=== PATIENT | male | born 1955 | race Caucasian/White ===

== ENCOUNTER 2025-01-30 16:16 | Observation (INO) | payer MEDICARE, OTHER ==
--- NOTE | 2025-01-30 16:25 | ERPHSYRPT ---
- History of Present Illness Source: patient Exam Limitations: no limitations Timing/Duration: day(s) Severity: mild (To moderate) Associated Symptoms: diaphoresis, chills, fever, loss of appetite, malaise, weakness, other (Chills), No shortness of breath, No chest pain <JOHANNY JALLOH - Last Filed: 01/30/25 18:37> <NAFISA WAGNER - Last Filed: 01/30/25 22:49> - History of Present Illness Time Seen by Provider: 01/30/25 16:25 Physician History: This is a 69-year-old white male patient of Dr. Sheikh who presents to the emergency department by private vehicle accompanied by his spouse for the complaint of chills, fever and sweating. Symptoms began approximately 01/21/2025. Ever since that time he has not been feeling well. He arrives to the emergency department with hypotension, afebrile. He denies chest pain. He denies abdominal pain. He has no nausea vomiting or diarrhea. (JOHANNY JALLOH) Allergies/Adverse Reactions: No Known Drug Allergies Allergy (Verified 01/30/25 16:22) Home Medications: Carvedilol 3.125 mg [Coreg 3.125 MG] 3.125 mg PO BID 01/30/25 [History] Furosemide [Lasix] 20 mg PO DAILY 01/30/25 [History] lisinopriL [Zestril] 2.5 mg PO DAILY 01/30/25 [History] Travel Risk - International Travel Have you traveled outside of the country in past 3 weeks: No - Emerging Infectious Disease Are you exhibiting symptoms associated with any current EIDs: Yes Symptoms: Fever <JOHANNY JALLOH - Last Filed: 01/30/25 18:37> - Review of Systems Constitutional: Fever, Weakness Eyes: No Symptoms Ears, Nose, & Throat: No Symptoms Respiratory: No Symptoms Cardiac: No Symptoms Abdominal/Gastrointestinal: Appetite Changes Genitourinary Symptoms: No Symptoms Musculoskeletal: No Symptoms Skin: No Symptoms Neurological: No Symptoms Psychological: No Symptoms Endocrine: Excessive Sweating Hematologic/Lymphatic: No Symptoms Immunological/Allergic: No Symptoms All Other Systems: Reviewed and Negative <JOHANNY JALLOH - Last Filed: 01/30/25 18:37> - Past Medical History Pertinent Past Medical History: Yes <JOHANNY JALLOH YaSu - Last Filed: 01/30/25 18:37> - Physical Exam General Appearance: mild distress, alert, anxiety Eye Exam: PERRL/EOMI, eyes nml inspection Ears, Nose, Throat Exam: normal ENT inspection, moist mucous membranes Neck Exam: normal inspection, non-tender, supple, full range of motion Respiratory Exam: normal breath sounds, lungs clear, airway intact, No chest tenderness, No respiratory distress Cardiovascular Exam: regular rate/rhythm, normal heart sounds, normal peripheral pulses Gastrointestinal/Abdomen Exam: soft, normal bowel sounds, No tenderness Rectal Exam: not done Back Exam: normal inspection, normal range of motion, No CVA tenderness, No vertebral tenderness Extremity Exam: normal inspection, normal range of motion, pelvis stable Neurologic Exam: alert, oriented x 3, cooperative, 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, nml cerebellar function, nml station & gait Skin Exam: normal color, warm, dry Lymphatic Exam: No adenopathy SpO2 Interpretation: borderline oxygenation O2 Delivery: Room Air <JOHANNY JALLOH - Last Filed: 01/30/25 18:37> - Nursing Vital Signs Nursing Vital Signs: Initial Vital Signs Temperature 98.8 F 01/30/25 16:20 Respiratory Rate 22 01/30/25 16:20 O2 Sat by Pulse Oximetry 93 L 01/30/25 16:20 Pain Scale Pain Intensity 0 - Course Nursing assessment & vital signs reviewed: Yes <JOHANNY JALLOH - Last Filed: 01/30/25 18:37> - Course EKG Interpreted by Me: RATE (73), Sinus Rhythm, NORMAL AXIS, Q-wave, Non- specific ST Changes, Other (QTc prolonged) <NAFISA WAGNER - Last Filed: 01/30/25 22:49> Ordered Tests: Active Orders 24 hr Category Date Time Status Call Admit Doctor for Orders ON ADMISSION Care 01/30/25 22:06 Active Code Status Order ROUTINE Care 01/30/25 22:06 Active EKG-ER Only STAT Care 01/30/25 18:23 Completed IV Insertion STAT Care 01/30/25 17:[address] in Observation ROUTINE Care 01/30/25 22:06 Active Pulse Oximetry (ED) STAT Care 01/30/25 17:05 Completed Telemetry q6h Care 01/30/25 22:06 Active CHEST 1 VIEW (PORTABLE) Stat Exams 01/30/25 17:05 Taken BLOOD CULTURE Stat Lab 01/30/25 17:26 Received CBC W DIFF Stat Lab 01/30/25 17:00 Completed CMP Stat Lab 01/30/25 17:00 Completed CULTURE,URINE Stat Lab 01/30/25 20:34 Received Lactic Acid Stat Lab 01/30/25 17:09 Completed MAGNESIUM Stat Lab 01/30/25 18:35 Completed MONO SCREEN Stat Lab 01/30/25 17:00 Completed NT PRO BNPII Stat Lab 01/30/25 18:35 Completed TROPONIN Q4H Lab 01/30/25 18:30 Completed TROPONIN Q4H Lab 01/30/25 22:09 Received TROPONIN Q4H Lab 01/31/25 02:30 Ordered UA W/RFX UR CULTURE Stat Lab 01/30/25 20:34 Completed Pulse Oximetry CONTINUOUS RT 01/30/25 22:06 Active Respiratory Therapy Consult ONCE RT 01/30/25 22:06 Active Transfer Order Routine Transfer 01/30/25 Completed Medication Summary Generic Name Dose Route Start Last Admin Trade Name Freq PRN Reason Stop Dose Admin Acetaminophen 325 mg 01/30/25 22:45 Acetaminophen 325 Mg Tablet PO 03/01/25 22:44 Q4H PRN PRN PAIN, FEVER, HEADACHE Enoxaparin Sodium 40 mg 01/31/25 10:00 Enoxaparin Sodium 40 Mg/0.4 Ml Syringe SQ 03/02/25 09:59 DAILY NATE Ceftriaxone Sodium 1 gm in 100 mls @ 200 mls/hr 01/31/25 10:00 Rocephin 1 Gm / 100 Ml Nacl IV 03/02/25 09:59 Q24H10 NATE Ondansetron HCl 4 mg 01/30/25 22:45 Ondansetron Hcl 4 Mg/2 Ml Vial IV 03/01/25 22:44 Q6H PRN PRN NAUSEA/VOMITING Pantoprazole Sodium 40 mg 01/31/25 10:00 Protonix (Pantoprazole) 40 Mg Tablet PO 03/02/25 09:59 DAILY NATE Discontinued Medications Generic Name Dose Route Start Last Admin Trade Name Freq PRN Reason Stop Dose Admin Sodium Chloride 1,000 mls @ 999 mls/hr 01/30/25 17:05 01/30/25 18:35 Sodium Chloride 0.9% 1000 Ml IV 01/30/25 18:05 Infused .Q1H1M STA Infusion Sodium Chloride Confirm 01/30/25 17:32 Sodium Chloride 0.9% 1000 Ml Administered 01/30/25 17:33 Dose 1,000 mls @ ud .ROUTE .STK-MED ONE Sodium Chloride 1,000 mls @ 125 mls/hr 01/30/25 19:15 01/30/25 19:23 Sodium Chloride 0.9% 1000 Ml IV 03/01/25 19:14 125 mls/hr .Q8H NATE Administration Ceftriaxone Sodium 1 gm in 100 mls @ 200 mls/hr 01/30/25 21:08 01/30/25 21:58 Rocephin 1 Gm / 100 Ml Nacl IV 01/30/25 21:37 Infused STAT ONE Infusion Ceftriaxone Sodium Confirm 01/30/25 21:23 Rocephin 1 Gm / 100 Ml Nacl Administered 01/30/25 21:24 Dose 1 gm in 100 mls @ ud IV .STK-MED ONE Sodium Chloride Confirm 01/30/25 19:21 Sodium Chloride 0.9% 1000 Ml Administered 01/30/25 19:22 Dose 1,000 mls @ ud .ROUTE .STK-MED ONE Lab/Rad Data: Laboratory Result Diagrams 01/30/25 17:00 01/30/25 17:00 Laboratory Results 01/30/25 01/30/25 01/30/25 Range/Units 20:34 18:35 18:30 WBC (4.23-9.07) x10^3/uL RBC (4.63-6.08) x10^6/uL Hgb (13.7-17.5) g/dL Hct (40.1-51.0) % MCV (79.0-92.2) fL MCH (25.7-32.2) pg MCHC (32.3-36.5) g/dL RDW (11.6-14.4) % Plt Count (163-337) x10^3/uL MPV (9.4-12.4) fL Gran % (34.0-67.9) % Immature Gran % (Auto) (0.001-0.429) % Nucleat RBC Rel Count (0.00-0.2) % Eos # (Auto) (0.04-0.54) x10^3/uL Immature Gran # (Auto) (0.001-0.031) x10^3u/L Absolute Lymphs (auto) (1.32-3.57) x10^3/uL Absolute Monos (auto) (0.30-0.82) x10^3/uL Absolute Nucleated RBC (0.00-0.012) x10^3u/L Lymphocytes % (21.8-53.1) % Monocytes % (5.3-12.2) % Eosinophils % (0.8-7.0) % Basophils % (0.2-1.2) % Absolute Granulocytes (1.78-5.38) x10^3/uL Basophils # (0.01-0.08) x10^3/uL Sodium (135-145) mmol/L Potassium (3.5-5.1) mmol/L Chloride (98-107) mmol/L Carbon Dioxide (22-30) mmol/L Anion Gap (5-15) MEQ/L BUN (9-20) mg/dL Creatinine (0.66-1.25) mg/dL Estimated GFR ML/MIN Glucose (74-106) mg/dL Lactic Acid (0.4-2.0) Calcium (8.4-10.2) mg/dL Magnesium 3.1 H (1.6-2.3) mg/dL Total Bilirubin (0.2-1.3) mg/dL AST (17-59) U/L ALT (0-50) U/L Alkaline Phosphatase (38-126) U/L Troponin I 0.018 (0.000-0.033) ng/mL NT-Pro-B Natriuret Pep 2020 (<300) pg/mL Serum Total Protein (6.3-8.2) g/dL Albumin (3.5-5.0) g/dL Urine Color Dark Yellow (Yellow) Urine Appearance Cloudy A (Clear) Urine pH 5.0 (4.6-8.0) Ur Specific [place] 1.020 (1.005-1.030) Urine Protein 100 A (Negative) Urine Glucose (UA) Negative (Negative) mg/dL Urine Ketones Trace A (Negative) Urine Blood Trace (Negative) Urine Nitrite Negative (Negative) Urine Bilirubin Negative (Negative) Urine Urobilinogen 0.2 (0.2) mg/dL Ur Leukocyte Esterase Large A (Negative) U Hyaline Cast (Auto) 6-10 A (0-2) /LPF Urine Microscopic RBC 11-20 A (0-5) /HPF Urine Microscopic WBC >100 A (0-5) /HPF Ur Epithelial Cells Rare (None Seen) /HPF Urine Bacteria Many A (None Seen) /HPF Granular Casts 3-5 A (None Seen) /LPF Urine Culture Reflexed YES (NO) Monoscreen (NEGATIVE) Slides for Path Review 01/30/25 01/30/25 01/30/25 Range/Units 17:09 17:00 17:00 WBC (4.23-9.07) x10^3/uL RBC (4.63-6.08) x10^6/uL Hgb (13.7-17.5) g/dL Hct (40.1-51.0) % MCV (79.0-92.2) fL MCH (25.7-32.2) pg MCHC (32.3-36.5) g/dL RDW (11.6-14.4) % Plt Count (163-337) x10^3/uL MPV (9.4-12.4) fL Gran % (34.0-67.9) % Immature Gran % (Auto) (0.001-0.429) % Nucleat RBC Rel Count (0.00-0.2) % Eos # (Auto) (0.04-0.54) x10^3/uL Immature Gran # (Auto) (0.001-0.031) x10^3u/L Absolute Lymphs (auto) (1.32-3.57) x10^3/uL Absolute Monos (auto) (0.30-0.82) x10^3/uL Absolute Nucleated RBC (0.00-0.012) x10^3u/L Lymphocytes % (21.8-53.1) % Monocytes % (5.3-12.2) % Eosinophils % (0.8-7.0) % Basophils % (0.2-1.2) % Absolute Granulocytes (1.78-5.38) x10^3/uL Basophils # (0.01-0.08) x10^3/uL Sodium 140 (135-145) mmol/L Potassium 4.2 (3.5-5.1) mmol/L Chloride 106 (98-107) mmol/L Carbon Dioxide 20 L (22-30) mmol/L Anion Gap 17.4 H (5-15) MEQ/L BUN 44 H (9-20) mg/dL Creatinine 2.22 H (0.66-1.25) mg/dL Estimated GFR 30.9 ML/MIN Glucose 140 H (74-106) mg/dL Lactic Acid 1.7 (0.4-2.0) Calcium 9.0 (8.4-10.2) mg/dL Magnesium (1.6-2.3) mg/dL Total Bilirubin 0.80 (0.2-1.3) mg/dL AST 100 H (17-59) U/L ALT 86 H (0-50) U/L Alkaline Phosphatase 163 H (38-126) U/L Troponin I (0.000-0.033) ng/mL NT-Pro-B Natriuret Pep (<300) pg/mL Serum Total Protein 7.0 (6.3-8.2) g/dL Albumin 3.7 (3.5-5.0) g/dL Urine Color (Yellow) Urine Appearance (Clear) Urine pH (4.6-8.0) Ur Specific [place] (1.005-1.030) Urine Protein (Negative) Urine Glucose (UA) (Negative) mg/dL Urine Ketones (Negative) Urine Blood (Negative) Urine Nitrite (Negative) Urine Bilirubin (Negative) Urine Urobilinogen (0.2) mg/dL Ur Leukocyte Esterase (Negative) U Hyaline Cast (Auto) (0-2) /LPF Urine Microscopic RBC (0-5) /HPF Urine Microscopic WBC (0-5) /HPF Ur Epithelial Cells (None Seen) /HPF Urine Bacteria (None Seen) /HPF Granular Casts (None Seen) /LPF Urine Culture Reflexed (NO) Monoscreen NEGATIVE (NEGATIVE) Slides for Path Review 01/30/25 Range/Units 17:00 WBC 11.0 H (4.23-9.07) x10^3/uL RBC 4.01 L (4.63-6.08) x10^6/uL Hgb 12.6 L (13.7-17.5) g/dL Hct 36.7 L (40.1-51.0) % MCV 91.5 (79.0-92.2) fL MCH 31.4 (25.7-32.2) pg MCHC 34.3 (32.3-36.5) g/dL RDW 14.6 H (11.6-14.4) % Plt Count 137 L (163-337) x10^3/uL MPV 11.8 (9.4-12.4) fL Gran % 89.5 H (34.0-67.9) % Immature Gran % (Auto) 0.6 H (0.001-0.429) % Nucleat RBC Rel Count 0.0 (0.00-0.2) % Eos # (Auto) 0 L (0.04-0.54) x10^3/uL Immature Gran # (Auto) 0.07 H (0.001-0.031) x10^3u/L Absolute Lymphs (auto) 0.49 L (1.32-3.57) x10^3/uL Absolute Monos (auto) 0.58 (0.30-0.82) x10^3/uL Absolute Nucleated RBC 0.00 (0.00-0.012) x10^3u/L Lymphocytes % 4.5 L (21.8-53.1) % Monocytes % 5.3 (5.3-12.2) % Eosinophils % 0.0 L (0.8-7.0) % Basophils % 0.1 L (0.2-1.2) % Absolute Granulocytes 9.81 H (1.78-5.38) x10^3/uL Basophils # 0.01 (0.01-0.08) x10^3/uL Sodium (135-145) mmol/L Potassium (3.5-5.1) mmol/L Chloride (98-107) mmol/L Carbon Dioxide (22-30) mmol/L Anion Gap (5-15) MEQ/L BUN (9-20) mg/dL Creatinine (0.66-1.25) mg/dL Estimated GFR ML/MIN Glucose (74-106) mg/dL Lactic Acid (0.4-2.0) Calcium (8.4-10.2) mg/dL Magnesium (1.6-2.3) mg/dL Total Bilirubin (0.2-1.3) mg/dL AST (17-59) U/L ALT (0-50) U/L Alkaline Phosphatase (38-126) U/L Troponin I (0.000-0.033) ng/mL NT-Pro-B Natriuret Pep (<300) pg/mL Serum Total Protein (6.3-8.2) g/dL Albumin (3.5-5.0) g/dL Urine Color (Yellow) Urine Appearance (Clear) Urine pH (4.6-8.0) Ur Specific [place] (1.005-1.030) Urine Protein (Negative) Urine Glucose (UA) (Negative) mg/dL Urine Ketones (Negative) Urine Blood (Negative) Urine Nitrite (Negative) Urine Bilirubin (Negative) Urine Urobilinogen (0.2) mg/dL Ur Leukocyte Esterase (Negative) U Hyaline Cast (Auto) (0-2) /LPF Urine Microscopic RBC (0-5) /HPF Urine Microscopic WBC (0-5) /HPF Ur Epithelial Cells (None Seen) /HPF Urine Bacteria (None Seen) /HPF Granular Casts (None Seen) /LPF Urine Culture Reflexed (NO) Monoscreen (NEGATIVE) Slides for Path Review YES <JOHANNY JALLOH - Last Filed: 01/30/25 18:37> - Progress Progress: improved Discussed with DrSu: Other (Dr. Dickinson hospitalist) Will see patient in: hospital (observation) Counseled pt/family regarding: lab results, diagnosis, rad results <NAFISA WAGNER - Last Filed: 01/30/25 22:49> - Progress Progress Note: 01/30/25 18:16 My medical decision making and the assignment of at least moderate complexity is based on review of the patient's past medical history, review of the patient's medication list, reviewed patient drug allergy list, history present illness and physical findings on examination. The workup in this patient includes placement of intravenous line, infusion of crystalloid solution, CBC, CMP, viral swabs, urinalysis, monotest, chest x-ray, strep test. Patient is declining all swab test. He is declining despite him telling me he "caught something" and had a recent . Differential diagnosis includes but is not limited to urinary tract infection, pneumonia, upper respiratory infection, viral illness, group A strep pharyngitis, 01/30/25 18:37 I am concerned that this patient's blood pressure was so low upon arrival to the emergency department without history of vomiting or diarrhea. He has had decreased oral intake further the patient and his spouse. We will add a twelve- lead EKG, BNP, troponin level. I am transferring care of this patient to Dr. Wagner at shift change. He will follow-up on pending studies and make final disposition. (JOHANNY JALLOH) 01/30/25 21:17 Patient is checked out to me at shift change from Dr. Jalloh with pending urinalysis. Patient presented with complains of chills, generalized weakness, was hypotensive, received 2 L fluids and current blood pressure in low 100s. Patient is not in any distress. Has a workup showing white count of 11, chemistries with acute renal failure baseline creatinine of 0.9 and today is 2.2. Also has a magnesium of 3.1. Patient is pretty dry. He has been taking Lasix. And has not been eating drinking well for the last few days. Checks x-ray reviewed by Dr. Jalloh and me do not see any acute infiltrative process, official report is pending, Patient does have a UTI with greater than 100 WBCs and large leukocyte esterase, started on renal dose of Rocephin. Troponins are negative, BN P20 20 but no signs of acute CHF exacerbation. Patient is not in any distress. Refused to have COVID and flu screening Discussed the results of workup with patient and family and recommended observat ion admission which they understand and agree. Discussed with Dr. Dickinson and patient is being admitted. Complexity of problem addressed: High acuity Complexity of data reviewed/analyzed: Moderate Risk of complication/morbidity/mortality: Hig (NAFISA WAGNER) Medical Desision Making - Independent Historian Additional History obtained from: Spouse <JOHANNY JALLOH - Last Filed: 01/30/25 18:37> - Discussion of managment Care discussed with:: hospitalist (Dr. Dickinson hospitalist) Reviewed:: Test results Agreed on:: Treatment plan, place in obs Will see patient: in hospital - Diagnostic Testing Diagnostic test were ordered, analyzed, and reviewed by me: Yes Radiological Interpretation: Interpreted by me, Reviewed by me - Risk of complications The pt has a mod risk of morbidity or mortality based on: Need for prescription drug management The pt has a high risk of morbidity or mortality based on: Decision regarding hospitilization or escalation of hosp level of care <NAFISA WAGNER - Last Filed: 01/30/25 22:49> - Departure Departure Disposition: Observation Critical Care Time: No <JOHANNY JALLOH - Last Filed: 01/30/25 18:37> - Departure Departure Disposition: Observation <NAFISA WAGNER - Last Filed: 01/30/25 22:49> - Departure Clinical Impression: Hypotension, Acute UTI (urinary tract infection), Acute renal failure Condition: Fair
[2025-01-30] MEDS ORDERED: Sodium Chloride 0.9% 1000 ML 1,000 ML ONE ×2 (17:32→19:21)
[2025-01-30] MEDS: Sodium Chloride 0.9% 1000 ML 1,000 ML IV STA (17:33)
[2025-01-30 17:37] LABS: Absolute Neutrophil Ct (ANC) 9.81 x10^3/uL (1.78-5.38); BASOPHIL % 0.1 % (0.2-1.2); Basophil (Absolute #) 0.01 x10^3/uL (0.01-0.08); Eosinophil (Absolute #) 0 x10^3/uL (0.04-0.54); Hematocrit 36.7 % (40.1-51.0); Hemoglobin 12.6 g/dL (13.7-17.5); IMMATURE GRAN # 0.07 x10^3u/L (0.001-0.031); IMMATURE GRAN % 0.6 % (0.001-0.429); Lymphocyte (Absolute #) 0.49 x10^3/uL (1.32-3.57); Lymphocytes % 4.5 % (21.8-53.1); Mean Cell Volume 91.5 fL (79.0-92.2); Mean Corpuscular Hemoglobin 31.4 pg (25.7-32.2); Mean Corpuscular Hgb Concent. 34.3 g/dL (32.3-36.5); Mean Platelet Volume 11.8 fL (9.4-12.4); Monocyte (Absolute #) 0.58 x10^3/uL (0.30-0.82); Monocytes % 5.3 % (5.3-12.2); Neutrophil % 89.5 % (34.0-67.9); Platelet Count 137 x10^3/uL (163-337); Red Blood Count 4.01 x10^6/uL (4.63-6.08); Red Cell Distribution Width 14.6 % (11.6-14.4)
[2025-01-30 17:49] LABS: ALBUMIN 3.7 g/dL (3.5-5.0); ANION GAP 17.4 MEQ/L (5-15); BILIRUBIN,TOTAL 0.8 mg/dL (0.2-1.3); Creatinine 1 2.22 mg/dL (0.66-1.25); EST GLOMERULAR FILTRATION RATE 30.9 ML/MIN; Potassium 4.2 mmol/L (3.5-5.1)
[2025-01-30 17:57] LABS: Slide Review 1 YES
[2025-01-30 18:57] LABS: MAGNESIUM 3.1 mg/dL (1.6-2.3)
[2025-01-30] MEDS: Sodium Chloride 0.9% 1000 ML 1,000 ML IV SCH ×2 (19:23→23:24)
[2025-01-30 20:46] LABS: Appearance Cloudy (Clear); Bacteria Many /HPF (None Seen); Bilirubin Negative (Negative); Blood Trace (Negative); Epithelial Cells Rare /HPF (None Seen); Glucose, Urine Negative (Negative); Ketones Trace (Negative); Leukocyte Esterase Large (Negative); Nitrite Negative (Negative); Protein,Urine Dip 100 (Negative); Urobilinogen 0.2 mg/dL (0.2); WBC >100 /HPF (0-5)
[2025-01-30] MEDS ORDERED: ROCEPHIN 1 GM / 100 ML NaCl 1 GM/100 ML IVPB IV ONE (21:23)
[2025-01-30] MEDS: ROCEPHIN 1 GM / 100 ML NaCl 1 GM/100 ML IVPB IV ONE (21:25)
--- NOTE | 2025-01-30 22:28 | PCM.HP ---
History of Present Illness - Chief Complaint Chief Complaint: fever, weakness Date: 01/30/25 History of Present Illness: Mr. MORTON is a 69 year old male with a past medical history significant for hypertension, hyperlipidemia, and CHF presents to the hospital with complaints of weakness, fever and cough. He was initially hypotensive with blood pressures in the 90s, though this improved after IVF bolus. Labs were notable for a BUN of 44 and creatinine of 2.2. He had been on diuretics and ALESSANDRA inhibitor, and believes he has been battling a urinary tract infection. He is seen via telehealth where he is resting in bed, lethargic but arousable. No recent sick contacts. No nausea, vomiting or diarrhea. No current dysuria, hematuria or urgency. No NSAIDs or recent exposure to contrast studies. - Review of Systems Constitutional: No Fever Eyes: No Vision Changes Ears, Nose, & Throat: No Nose Discharge, No Sinus Drainage Respiratory: No Cough, No Short Of Breath Cardiac: No Chest Pain, No Edema, No Palpitations Abdominal/Gastrointestinal: No Abdominal Pain, No Nausea, No Vomiting Genitourinary Symptoms: No Dysuria, No Frequency, No Hematuria Musculoskeletal: No Back Pain, No Neck Pain Skin: No Cellulitis, No Rash Neurological: No Dizziness, No Focal Weakness Psychological: No Suicidal Ideations Endocrine: No Polyuria, No Polydipsia Medications & Allergies Home Medications: Home Medication List Carvedilol 3.125 mg [Coreg 3.125 MG] 3.125 mg PO BID 01/30/25 [History Confirmed 01/30/25] Furosemide [Lasix] 20 mg PO DAILY 01/30/25 [History Confirmed 01/30/25] lisinopriL [Zestril] 2.5 mg PO DAILY 01/30/25 [History Confirmed 01/30/25] Allergies/Adverse Reactions: Allergies Allergy/AdvReac Type Severity Reaction Status Date / Time No Known Drug Allergies Allergy Verified 01/30/25 16:22 - Past Medical History Past Medical History: Yes Cardiac History: Aneurysm, Congestive Heart Failure, Hypertension Respiratory History: CHF, Other Comment: "black lung" - Past Surgical History Past Surgical History: Yes Other Surgical History: Vein from right leg used to fix little toe in right foot (Dr. Cabrera) - Social History Smoking Status: Former smoker Alcohol: None Drug Use: none - Social Determinants of Health Will the patient participate in the screening: Yes Do you worry about a steady place to live?: No Do you have any problems with any of the following?: No known problems In the past 12 months,have you had to go without utilities?: No Have you or anyone in your house had to go without enough: No Transportation Issues: No Has anyone in your support network made you feel unsafe?: No - Physical Exam Vital Signs: Vital Signs - 24 hr Temp Pulse Resp BP Pulse Ox 01/30/25 21:50 69 15 100/56 97 01/30/25 21:40 69 15 105/58 96 01/30/25 21:30 67 13 101/52 96 01/30/25 21:21 69 21 116/67 97 01/30/25 21:10 72 20 100/64 01/30/25 21:00 71 15 106/65 98 01/30/25 20:50 71 19 100/60 01/30/25 20:40 70 23 97/51 01/30/25 20:31 73 21 114/66 97 01/30/25 20:20 74 23 87/54 01/30/25 20:10 72 22 101/54 96 01/30/25 20:04 70 18 97 01/30/25 19:56 72 22 69/42 95 01/30/25 19:50 67 19 58/39 96 01/30/25 19:40 69 20 85/55 97 01/30/25 19:30 72 19 98/54 95 01/30/25 19:20 74 20 96/55 96 01/30/25 19:10 74 23 104/56 95 01/30/25 19:00 73 19 103/57 96 01/30/25 18:50 72 01/30/25 18:30 73 19 95/51 01/30/25 18:20 74 19 98/51 01/30/25 18:10 75 21 91/51 01/30/25 18:09 75 20 97/59 01/30/25 18:00 75 20 77/50 01/30/25 17:45 77 22 92/47 01/30/25 17:05 93 L 01/30/25 17:00 84 20 69/50 92 L 01/30/25 16:30 90 20 75/51 93 L 01/30/25 16:20 98.8 F 22 93 L General Appearance: no apparent distress Neurologic Exam: alert, cooperative Ears, Nose, Throat Exam: dry mucous membranes Neck Exam: supple Respiratory Exam: No respiratory distress Cardiovascular Exam: regular rate/rhythm Gastrointestinal/Abdomen Exam: soft Extremity Exam: No pedal edema, No swelling Skin Exam: normal color, No rash Results - Labs Lab/Micro Results: Lab Results-Last 24 Hours 01/30/25 01/30/25 01/30/25 Range/Units 17:00 17:00 17:00 WBC 11.0 H (4.23-9.07) x10^3/uL RBC 4.01 L (4.63-6.08) x10^6/uL Hgb 12.6 L (13.7-17.5) g/dL Hct 36.7 L (40.1-51.0) % MCV 91.5 (79.0-92.2) fL MCH 31.4 (25.7-32.2) pg MCHC 34.3 (32.3-36.5) g/dL RDW 14.6 H (11.6-14.4) % Plt Count 137 L (163-337) x10^3/uL MPV 11.8 (9.4-12.4) fL Gran % 89.5 H (34.0-67.9) % Immature Gran % (Auto) 0.6 H (0.001-0.429) % Nucleat RBC Rel Count 0.0 (0.00-0.2) % Eos # (Auto) 0 L (0.04-0.54) x10^3/uL Immature Gran # (Auto) 0.07 H (0.001-0.031) x10^3u/L Absolute Lymphs (auto) 0.49 L (1.32-3.57) x10^3/uL Absolute Monos (auto) 0.58 (0.30-0.82) x10^3/uL Absolute Nucleated RBC 0.00 (0.00-0.012) x10^3u/L Lymphocytes % 4.5 L (21.8-53.1) % Monocytes % 5.3 (5.3-12.2) % Eosinophils % 0.0 L (0.8-7.0) % Basophils % 0.1 L (0.2-1.2) % Absolute Granulocytes 9.81 H (1.78-5.38) x10^3/uL Basophils # 0.01 (0.01-0.08) x10^3/uL Sodium 140 (135-145) mmol/L Potassium 4.2 (3.5-5.1) mmol/L Chloride 106 (98-107) mmol/L Carbon Dioxide 20 L (22-30) mmol/L Anion Gap 17.4 H (5-15) MEQ/L BUN 44 H (9-20) mg/dL Creatinine 2.22 H (0.66-1.25) mg/dL Estimated GFR 30.9 ML/MIN Glucose 140 H (74-106) mg/dL Lactic Acid (0.4-2.0) Calcium 9.0 (8.4-10.2) mg/dL Magnesium (1.6-2.3) mg/dL Total Bilirubin 0.80 (0.2-1.3) mg/dL AST 100 H (17-59) U/L ALT 86 H (0-50) U/L Alkaline Phosphatase 163 H (38-126) U/L Troponin I (0.000-0.033) ng/mL NT-Pro-B Natriuret Pep (<300) pg/mL Serum Total Protein 7.0 (6.3-8.2) g/dL Albumin 3.7 (3.5-5.0) g/dL Urine Color (Yellow) Urine Appearance (Clear) Urine pH (4.6-8.0) Ur Specific [place] (1.005-1.030) Urine Protein (Negative) Urine Glucose (UA) (Negative) mg/dL Urine Ketones (Negative) Urine Blood (Negative) Urine Nitrite (Negative) Urine Bilirubin (Negative) Urine Urobilinogen (0.2) mg/dL Ur Leukocyte Esterase (Negative) U Hyaline Cast (Auto) (0-2) /LPF Urine Microscopic RBC (0-5) /HPF Urine Microscopic WBC (0-5) /HPF Ur Epithelial Cells (None Seen) /HPF Urine Bacteria (None Seen) /HPF Granular Casts (None Seen) /LPF Urine Culture Reflexed (NO) Monoscreen NEGATIVE (NEGATIVE) Slides for Path Review YES 03/13/25 03/13/25 03/13/25 Range/Units 17:09 18:30 18:35 WBC (4.23-9.07) x10^3/uL RBC (4.63-6.08) x10^6/uL Hgb (13.7-17.5) g/dL Hct (40.1-51.0) % MCV (79.0-92.2) fL MCH (25.7-32.2) pg MCHC (32.3-36.5) g/dL RDW (11.6-14.4) % Plt Count (163-337) x10^3/uL MPV (9.4-12.4) fL Gran % (34.0-67.9) % Immature Gran % (Auto) (0.001-0.429) % Nucleat RBC Rel Count (0.00-0.2) % Eos # (Auto) (0.04-0.54) x10^3/uL Immature Gran # (Auto) (0.001-0.031) x10^3u/L Absolute Lymphs (auto) (1.32-3.57) x10^3/uL Absolute Monos (auto) (0.30-0.82) x10^3/uL Absolute Nucleated RBC (0.00-0.012) x10^3u/L Lymphocytes % (21.8-53.1) % Monocytes % (5.3-12.2) % Eosinophils % (0.8-7.0) % Basophils % (0.2-1.2) % Absolute Granulocytes (1.78-5.38) x10^3/uL Basophils # (0.01-0.08) x10^3/uL Sodium (135-145) mmol/L Potassium (3.5-5.1) mmol/L Chloride (98-107) mmol/L Carbon Dioxide (22-30) mmol/L Anion Gap (5-15) MEQ/L BUN (9-20) mg/dL Creatinine (0.66-1.25) mg/dL Estimated GFR ML/MIN Glucose (74-106) mg/dL Lactic Acid 1.7 (0.4-2.0) Calcium (8.4-10.2) mg/dL Magnesium 3.1 H (1.6-2.3) mg/dL Total Bilirubin (0.2-1.3) mg/dL AST (17-59) U/L ALT (0-50) U/L Alkaline Phosphatase (38-126) U/L Troponin I 0.018 (0.000-0.033) ng/mL NT-Pro-B Natriuret Pep 2020 (<300) pg/mL Serum Total Protein (6.3-8.2) g/dL Albumin (3.5-5.0) g/dL Urine Color (Yellow) Urine Appearance (Clear) Urine pH (4.6-8.0) Ur Specific [place] (1.005-1.030) Urine Protein (Negative) Urine Glucose (UA) (Negative) mg/dL Urine Ketones (Negative) Urine Blood (Negative) Urine Nitrite (Negative) Urine Bilirubin (Negative) Urine Urobilinogen (0.2) mg/dL Ur Leukocyte Esterase (Negative) U Hyaline Cast (Auto) (0-2) /LPF Urine Microscopic RBC (0-5) /HPF Urine Microscopic WBC (0-5) /HPF Ur Epithelial Cells (None Seen) /HPF Urine Bacteria (None Seen) /HPF Granular Casts (None Seen) /LPF Urine Culture Reflexed (NO) Monoscreen (NEGATIVE) Slides for Path Review 01/30/25 Range/Units 20:34 WBC (4.23-9.07) x10^3/uL RBC (4.63-6.08) x10^6/uL Hgb (13.7-17.5) g/dL Hct (40.1-51.0) % MCV (79.0-92.2) fL MCH (25.7-32.2) pg MCHC (32.3-36.5) g/dL RDW (11.6-14.4) % Plt Count (163-337) x10^3/uL MPV (9.4-12.4) fL Gran % (34.0-67.9) % Immature Gran % (Auto) (0.001-0.429) % Nucleat RBC Rel Count (0.00-0.2) % Eos # (Auto) (0.04-0.54) x10^3/uL Immature Gran # (Auto) (0.001-0.031) x10^3u/L Absolute Lymphs (auto) (1.32-3.57) x10^3/uL Absolute Monos (auto) (0.30-0.82) x10^3/uL Absolute Nucleated RBC (0.00-0.012) x10^3u/L Lymphocytes % (21.8-53.1) % Monocytes % (5.3-12.2) % Eosinophils % (0.8-7.0) % Basophils % (0.2-1.2) % Absolute Granulocytes (1.78-5.38) x10^3/uL Basophils # (0.01-0.08) x10^3/uL Sodium (135-145) mmol/L Potassium (3.5-5.1) mmol/L Chloride (98-107) mmol/L Carbon Dioxide (22-30) mmol/L Anion Gap (5-15) MEQ/L BUN (9-20) mg/dL Creatinine (0.66-1.25) mg/dL Estimated GFR ML/MIN Glucose (74-106) mg/dL Lactic Acid (0.4-2.0) Calcium (8.4-10.2) mg/dL Magnesium (1.6-2.3) mg/dL Total Bilirubin (0.2-1.3) mg/dL AST (17-59) U/L ALT (0-50) U/L Alkaline Phosphatase (38-126) U/L Troponin I (0.000-0.033) ng/mL NT-Pro-B Natriuret Pep (<300) pg/mL Serum Total Protein (6.3-8.2) g/dL Albumin (3.5-5.0) g/dL Urine Color Dark Yellow (Yellow) Urine Appearance Cloudy A (Clear) Urine pH 5.0 (4.6-8.0) Ur Specific [place] 1.020 (1.005-1.030) Urine Protein 100 A (Negative) Urine Glucose (UA) Negative (Negative) mg/dL Urine Ketones Trace A (Negative) Urine Blood Trace (Negative) Urine Nitrite Negative (Negative) Urine Bilirubin Negative (Negative) Urine Urobilinogen 0.2 (0.2) mg/dL Ur Leukocyte Esterase Large A (Negative) U Hyaline Cast (Auto) 6-10 A (0-2) /LPF Urine Microscopic RBC 11-20 A (0-5) /HPF Urine Microscopic WBC >100 A (0-5) /HPF Ur Epithelial Cells Rare (None Seen) /HPF Urine Bacteria Many A (None Seen) /HPF Granular Casts 3-5 A (None Seen) /LPF Urine Culture Reflexed YES (NO) Monoscreen (NEGATIVE) Slides for Path Review - Radiology Impressions Radiology Exams & Impressions: Radiology Procedures Category Date Time Status CHEST 1 VIEW (PORTABLE) Stat Exams 01/30/25 17:05 Taken - Other Procedures and Tests Respiratory Therapy 01/30/25 22:06 Respiratory Therapy Consult ONCE Assessment/Plan (1) Acute renal failure Current Visit: No Status: Acute Assessment & Plan: Likely from prerenal azotemia/hypotension in setting of diuretics/ALESSANDRA 1. Admit to hospital 2. Hold diuretics/ALESSANDRA 3. IVFs 4. Renal u/s 5. Check urine lytes, urine creatinine 6. DVT/GI prophylaxis 7. Follow I/Os 8. Watch electrolytes, creatinine closely (2) CHF (congestive heart failure) Current Visit: No Status: Acute Qualifiers: Heart failure chronicity: chronic Assessment & Plan: Clinically dry 1. Hold diuretics 2. Daily weights 3. CXR prn Code(s): I50.9 - HEART FAILURE, UNSPECIFIED (3) Essential (primary) hypertension Current Visit: No Status: Acute Assessment & Plan: Blood pressure on the low side 1. Hold bp meds 2. Low Na diet 3. Monitor blood pressure readings Code(s): I10 - ESSENTIAL (PRIMARY) HYPERTENSION (4) Acute UTI (urinary tract infection) Current Visit: No Status: Acute Assessment & Plan: UTI with bacteriuria 1. Start antibiotics 2. Check urine culture Code(s): N39.0 - URINARY TRACT INFECTION, SITE NOT SPECIFIED Telemedicine Encounter - Telemedicine Encounter Telemedicine Encounter: "The entirety of this encounter was performed via Telemedicine" This visit was performed using real-time audio and video connection between my location and thepatients locationwith the assistance of a surrogateat the patients location. Written or verbal consent was obtained from the patient/guardian to perform this visit using[email or web address] technology. Any patient questions regarding the telemedicine interaction were answered.
[2025-01-30] MEDS ORDERED: Zofran 4 MG/2 ML VIAL IV PRN (22:45)
[2025-01-31 02:16] LABS: Absolute Neutrophil Ct (ANC) 8.58 x10^3/uL (1.78-5.38); BASOPHIL % 0.1 % (0.2-1.2); Basophil (Absolute #) 0.01 x10^3/uL (0.01-0.08); Eosinophil % 0.1 % (0.8-7.0); Eosinophil (Absolute #) 0.01 x10^3/uL (0.04-0.54); Hematocrit 36.2 % (40.1-51.0); Hemoglobin 11.8 g/dL (13.7-17.5); IMMATURE GRAN # 0.07 x10^3u/L (0.001-0.031); IMMATURE GRAN % 0.6 % (0.001-0.429); Lymphocyte (Absolute #) 1.15 x10^3/uL (1.32-3.57); Lymphocytes % 10.6 % (21.8-53.1); Mean Cell Volume 94.3 fL (79.0-92.2); Mean Corpuscular Hemoglobin 30.7 pg (25.7-32.2); Mean Corpuscular Hgb Concent. 32.6 g/dL (32.3-36.5); Mean Platelet Volume 11.6 fL (9.4-12.4); Monocyte (Absolute #) 0.99 x10^3/uL (0.30-0.82); Monocytes % 9.2 % (5.3-12.2); Neutrophil % 79.4 % (34.0-67.9); Platelet Count 139 x10^3/uL (163-337); Red Blood Count 3.84 x10^6/uL (4.63-6.08); Red Cell Distribution Width 14.7 % (11.6-14.4); White Blood Count 10.8 x10^3/uL (4.23-9.07)
[2025-01-31 02:32] LABS: ALBUMIN 3.3 g/dL (3.5-5.0); ANION GAP 16.9 MEQ/L (5-15); BILIRUBIN,TOTAL 0.5 mg/dL (0.2-1.3); Creatinine 1 1.99 mg/dL (0.66-1.25); EST GLOMERULAR FILTRATION RATE 35.2 ML/MIN; Potassium 3.6 mmol/L (3.5-5.1); Total Protein 6.2 g/dL (6.3-8.2)
[2025-01-31] MEDS: TYLENOL 325 MG PO PRN ×2 (04:56→17:53)
--- NOTE | 2025-01-31 08:41 | XRAY ---
Indication: Fever and chills. Comparison: February 27, 2019 Portable chest demonstrates new mild left base discoid atelectasis/scarring. Remaining lungs clear again with incidental right base calcified granuloma. Heart not enlarged again with tortuous descending aorta. Bony thorax intact again with osteopenia and degenerative changes. Impression: Continued nonacute chest with chronic features.
--- NOTE | 2025-01-31 10:02 | PCM.NOTE ---
Date and Time: 01/31/25 0954 Subjective Assessment: 01/31/25 Mr. MORTON is a 69 year old male with a past medical history significant for BPH, hypertension, hyperlipidemia, and CHF. He presented to the hospital on 01/30/25 with complaints of weakness, fever and cough. He was initially hypotensive with blood pressures in the 90s, though this improved after IVF bolus in ER. Labs were notable for a BUN of 44 and creatinine of 2.2. He had been on diuretics and ALESSANDRA inhibitor, and believes he has been battling a urinary tract infection. . No recent sick contacts. No nausea, vomiting or diarrhea. No current dysuria, hematuria or urgency. UA + for UTI and started on IV antibiotic. He developed a fever twice last night of 101 and provided IBP put of her purse. Nurse educated to not do this for proper monitoring and decrease the chance of organ damage as we are giving meds as well for fever. I reiterated this information today. He is refusing flu/ COVID/RSV testing and states they do not believe in the testing or illnesses. Since pt has flu like sxs will place in isolation. Pt states he had fever and chillls last night with hot flashes. WBC improved toay 10.8. he continues to be dehyrated and IVF increased to 75 ml/hr. explains he drinks lots of coffee and pop and not much water, thus likely also causing part of his dehydration. Encouraged pt to increase water intake. BC x2 and UC pending. Pt to eval as he states he is weak. Corrected Ca+ 8.2 and Tums BID started. He denies CP, abd. pain, N/V/D. - Review of Systems Constitutional: Fever, Chills, Malaise, Weakness Eyes: No Symptoms Ears, Nose, & Throat: No Symptoms Respiratory: Short Of Breath, No Cough Cardiac: No Chest Pain, No Edema, No Syncope Abdominal/Gastrointestinal: No Abdominal Pain, No Nausea, No Vomiting, No Diarrhea Genitourinary Symptoms: No Dysuria Musculoskeletal: No Back Pain, No Neck Pain Skin: No Rash Neurological: No Dizziness, No Focal Weakness, No Sensory Changes Psychological: No Symptoms Endocrine: No Symptoms Hematologic/Lymphatic: No Symptoms Immunological/Allergic: No Symptoms Objective Exam General Appearance: no apparent distress, alert Neurologic Exam: alert, oriented x 3, cooperative, normal mood/affect, nml cerebellar function, sensation nml, motor weakness, No motor deficits Skin Exam: normal color, warm, dry Eye Exam: PERRL, EOMI, eyes nml inspection Ears, Nose, Throat Exam: normal ENT inspection, pharynx normal, moist mucous membranes Neck Exam: normal inspection, non-tender, supple, full range of motion Respiratory Exam: normal breath sounds, lungs clear, No respiratory distress Cardiovascular Exam: regular rate/rhythm, normal heart sounds Gastrointestinal/Abdomen Exam: soft, No tenderness, No mass Extremity Exam: normal inspection, normal range of motion Back Exam: normal inspection, normal range of motion, No CVA tenderness, No vertebral tenderness Male Genitalia Exam: deferred Rectal Exam: deferred Objective Data Vital Signs: Vital Signs - 24 hr Temp Pulse Resp BP BP Pulse Ox 01/31/25 06:00 101.8 F 79 20 120/64 94 L 01/30/25 23:31 94 L 01/30/25 22:04 98.5 F 74 18 94 L 01/30/25 21:50 69 15 100/56 97 01/30/25 21:40 69 15 105/58 96 01/30/25 21:30 67 13 101/52 96 01/30/25 21:21 69 21 116/67 97 01/30/25 21:10 72 20 100/64 01/30/25 21:00 71 15 106/65 98 01/30/25 20:50 71 19 100/60 01/30/25 20:40 70 23 97/51 01/30/25 20:31 73 21 114/66 97 01/30/25 20:20 74 23 87/54 01/30/25 20:10 72 22 101/54 96 01/30/25 20:04 70 18 97 01/30/25 19:56 72 22 69/42 95 01/30/25 19:50 67 19 58/39 96 01/30/25 19:40 69 20 85/55 97 01/30/25 19:30 72 19 98/54 95 01/30/25 19:20 74 20 96/55 96 01/30/25 19:10 74 23 104/56 95 01/30/25 19:00 73 19 103/57 96 01/30/25 18:50 72 01/30/25 18:30 73 19 95/51 01/30/25 18:20 74 19 98/51 01/30/25 18:10 75 21 91/51 01/30/25 18:09 75 20 97/59 01/30/25 18:00 75 20 77/50 01/30/25 17:45 77 22 92/47 01/30/25 17:05 93 L 01/30/25 17:00 84 20 69/50 92 L 01/30/25 16:30 90 20 75/51 93 L 01/30/25 16:20 98.8 F 22 93 L Pain Assessment - Last Documented Pain Intensity 0 Pain Scale Used 0-10 Pain Scale Intake and Output: Intake & Output 01/28/25 01/29/25 01/30/25 01/31/25 11:59 11:59 11:59 11:59 Intake Total 120 Output Total 400 Balance -280 Weight 111.3 kg Lab Results: Lab Results-Last 24 Hours 01/30/25 01/30/25 01/30/25 Range/Units 17:00 17:00 17:00 WBC 11.0 H (4.23-9.07) x10^3/uL RBC 4.01 L (4.63-6.08) x10^6/uL Hgb 12.6 L (13.7-17.5) g/dL Hct 36.7 L (40.1-51.0) % MCV 91.5 (79.0-92.2) fL MCH 31.4 (25.7-32.2) pg MCHC 34.3 (32.3-36.5) g/dL RDW 14.6 H (11.6-14.4) % Plt Count 137 L (163-337) x10^3/uL MPV 11.8 (9.4-12.4) fL Gran % 89.5 H (34.0-67.9) % Immature Gran % (Auto) 0.6 H (0.001-0.429) % Nucleat RBC Rel Count 0.0 (0.00-0.2) % Eos # (Auto) 0 L (0.04-0.54) x10^3/uL Immature Gran # (Auto) 0.07 H (0.001-0.031) x10^3u/L Absolute Lymphs (auto) 0.49 L (1.32-3.57) x10^3/uL Absolute Monos (auto) 0.58 (0.30-0.82) x10^3/uL Absolute Nucleated RBC 0.00 (0.00-0.012) x10^3u/L Lymphocytes % 4.5 L (21.8-53.1) % Monocytes % 5.3 (5.3-12.2) % Eosinophils % 0.0 L (0.8-7.0) % Basophils % 0.1 L (0.2-1.2) % Absolute Granulocytes 9.81 H (1.78-5.38) x10^3/uL Basophils # 0.01 (0.01-0.08) x10^3/uL Sodium 140 (135-145) mmol/L Potassium 4.2 (3.5-5.1) mmol/L Chloride 106 (98-107) mmol/L Carbon Dioxide 20 L (22-30) mmol/L Anion Gap 17.4 H (5-15) MEQ/L BUN 44 H (9-20) mg/dL Creatinine 2.22 H (0.66-1.25) mg/dL Estimated GFR 30.9 ML/MIN Glucose 140 H (74-106) mg/dL Lactic Acid (0.4-2.0) Calcium 9.0 (8.4-10.2) mg/dL Magnesium (1.6-2.3) mg/dL Total Bilirubin 0.80 (0.2-1.3) mg/dL AST 100 H (17-59) U/L ALT 86 H (0-50) U/L Alkaline Phosphatase 163 H (38-126) U/L Troponin I (0.000-0.033) ng/mL NT-Pro-B Natriuret Pep (<300) pg/mL Serum Total Protein 7.0 (6.3-8.2) g/dL Albumin 3.7 (3.5-5.0) g/dL Urine Color (Yellow) Urine Appearance (Clear) Urine pH (4.6-8.0) Ur Specific Hustler (1.005-1.030) Urine Protein (Negative) Urine Glucose (UA) (Negative) mg/dL Urine Ketones (Negative) Urine Blood (Negative) Urine Nitrite (Negative) Urine Bilirubin (Negative) Urine Urobilinogen (0.2) mg/dL Ur Leukocyte Esterase (Negative) U Hyaline Cast (Auto) (0-2) /LPF Urine Microscopic RBC (0-5) /HPF Urine Microscopic WBC (0-5) /HPF Ur Epithelial Cells (None Seen) /HPF Urine Bacteria (None Seen) /HPF Granular Casts (None Seen) /LPF Urine Culture Reflexed (NO) Monoscreen NEGATIVE (NEGATIVE) Slides for Path Review YES 01/30/25 01/30/25 01/30/25 Range/Units 17:09 18:30 18:35 WBC (4.23-9.07) x10^3/uL RBC (4.63-6.08) x10^6/uL Hgb (13.7-17.5) g/dL Hct (40.1-51.0) % MCV (79.0-92.2) fL MCH (25.7-32.2) pg MCHC (32.3-36.5) g/dL RDW (11.6-14.4) % Plt Count (163-337) x10^3/uL MPV (9.4-12.4) fL Gran % (34.0-67.9) % Immature Gran % (Auto) (0.001-0.429) % Nucleat RBC Rel Count (0.00-0.2) % Eos # (Auto) (0.04-0.54) x10^3/uL Immature Gran # (Auto) (0.001-0.031) x10^3u/L Absolute Lymphs (auto) (1.32-3.57) x10^3/uL Absolute Monos (auto) (0.30-0.82) x10^3/uL Absolute Nucleated RBC (0.00-0.012) x10^3u/L Lymphocytes % (21.8-53.1) % Monocytes % (5.3-12.2) % Eosinophils % (0.8-7.0) % Basophils % (0.2-1.2) % Absolute Granulocytes (1.78-5.38) x10^3/uL Basophils # (0.01-0.08) x10^3/uL Sodium (135-145) mmol/L Potassium (3.5-5.1) mmol/L Chloride (98-107) mmol/L Carbon Dioxide (22-30) mmol/L Anion Gap (5-15) MEQ/L BUN (9-20) mg/dL Creatinine (0.66-1.25) mg/dL Estimated GFR ML/MIN Glucose (74-106) mg/dL Lactic Acid 1.7 (0.4-2.0) Calcium (8.4-10.2) mg/dL Magnesium 3.1 H (1.6-2.3) mg/dL Total Bilirubin (0.2-1.3) mg/dL AST (17-59) U/L ALT (0-50) U/L Alkaline Phosphatase (38-126) U/L Troponin I 0.018 (0.000-0.033) ng/mL NT-Pro-B Natriuret Pep 2020 (<300) pg/mL Serum Total Protein (6.3-8.2) g/dL Albumin (3.5-5.0) g/dL Urine Color (Yellow) Urine Appearance (Clear) Urine pH (4.6-8.0) Ur Specific Hustler (1.005-1.030) Urine Protein (Negative) Urine Glucose (UA) (Negative) mg/dL Urine Ketones (Negative) Urine Blood (Negative) Urine Nitrite (Negative) Urine Bilirubin (Negative) Urine Urobilinogen (0.2) mg/dL Ur Leukocyte Esterase (Negative) U Hyaline Cast (Auto) (0-2) /LPF Urine Microscopic RBC (0-5) /HPF Urine Microscopic WBC (0-5) /HPF Ur Epithelial Cells (None Seen) /HPF Urine Bacteria (None Seen) /HPF Granular Casts (None Seen) /LPF Urine Culture Reflexed (NO) Monoscreen (NEGATIVE) Slides for Path Review 01/30/25 01/30/25 01/31/25 Range/Units 20:34 22:09 02:10 WBC (4.23-9.07) x10^3/uL RBC (4.63-6.08) x10^6/uL Hgb (13.7-17.5) g/dL Hct (40.1-51.0) % MCV (79.0-92.2) fL MCH (25.7-32.2) pg MCHC (32.3-36.5) g/dL RDW (11.6-14.4) % Plt Count (163-337) x10^3/uL MPV (9.4-12.4) fL Gran % (34.0-67.9) % Immature Gran % (Auto) (0.001-0.429) % Nucleat RBC Rel Count (0.00-0.2) % Eos # (Auto) (0.04-0.54) x10^3/uL Immature Gran # (Auto) (0.001-0.031) x10^3u/L Absolute Lymphs (auto) (1.32-3.57) x10^3/uL Absolute Monos (auto) (0.30-0.82) x10^3/uL Absolute Nucleated RBC (0.00-0.012) x10^3u/L Lymphocytes % (21.8-53.1) % Monocytes % (5.3-12.2) % Eosinophils % (0.8-7.0) % Basophils % (0.2-1.2) % Absolute Granulocytes (1.78-5.38) x10^3/uL Basophils # (0.01-0.08) x10^3/uL Sodium (135-145) mmol/L Potassium (3.5-5.1) mmol/L Chloride (98-107) mmol/L Carbon Dioxide (22-30) mmol/L Anion Gap (5-15) MEQ/L BUN (9-20) mg/dL Creatinine (0.66-1.25) mg/dL Estimated GFR ML/MIN Glucose (74-106) mg/dL Lactic Acid (0.4-2.0) Calcium (8.4-10.2) mg/dL Magnesium (1.6-2.3) mg/dL Total Bilirubin (0.2-1.3) mg/dL AST (17-59) U/L ALT (0-50) U/L Alkaline Phosphatase (38-126) U/L Troponin I 0.029 0.020 (0.000-0.033) ng/mL NT-Pro-B Natriuret Pep (<300) pg/mL Serum Total Protein (6.3-8.2) g/dL Albumin (3.5-5.0) g/dL Urine Color Dark Yellow (Yellow) Urine Appearance Cloudy A (Clear) Urine pH 5.0 (4.6-8.0) Ur Specific Hustler 1.020 (1.005-1.030) Urine Protein 100 A (Negative) Urine Glucose (UA) Negative (Negative) mg/dL Urine Ketones Trace A (Negative) Urine Blood Trace (Negative) Urine Nitrite Negative (Negative) Urine Bilirubin Negative (Negative) Urine Urobilinogen 0.2 (0.2) mg/dL Ur Leukocyte Esterase Large A (Negative) U Hyaline Cast (Auto) 6-10 A (0-2) /LPF Urine Microscopic RBC 11-20 A (0-5) /HPF Urine Microscopic WBC >100 A (0-5) /HPF Ur Epithelial Cells Rare (None Seen) /HPF Urine Bacteria Many A (None Seen) /HPF Granular Casts 3-5 A (None Seen) /LPF Urine Culture Reflexed YES (NO) Monoscreen (NEGATIVE) Slides for Path Review 01/31/25 01/31/25 Range/Units 02:10 02:10 WBC 10.8 H (4.23-9.07) x10^3/uL RBC 3.84 L (4.63-6.08) x10^6/uL Hgb 11.8 L (13.7-17.5) g/dL Hct 36.2 L (40.1-51.0) % MCV 94.3 H (79.0-92.2) fL MCH 30.7 (25.7-32.2) pg MCHC 32.6 (32.3-36.5) g/dL RDW 14.7 H (11.6-14.4) % Plt Count 139 L (163-337) x10^3/uL MPV 11.6 (9.4-12.4) fL Gran % 79.4 H (34.0-67.9) % Immature Gran % (Auto) 0.6 H (0.001-0.429) % Nucleat RBC Rel Count 0.0 (0.00-0.2) % Eos # (Auto) 0.01 L (0.04-0.54) x10^3/uL Immature Gran # (Auto) 0.07 H (0.001-0.031) x10^3u/L Absolute Lymphs (auto) 1.15 L (1.32-3.57) x10^3/uL Absolute Monos (auto) 0.99 H (0.30-0.82) x10^3/uL Absolute Nucleated RBC 0.00 (0.00-0.012) x10^3u/L Lymphocytes % 10.6 L (21.8-53.1) % Monocytes % 9.2 (5.3-12.2) % Eosinophils % 0.1 L (0.8-7.0) % Basophils % 0.1 L (0.2-1.2) % Absolute Granulocytes 8.58 H (1.78-5.38) x10^3/uL Basophils # 0.01 (0.01-0.08) x10^3/uL Sodium 140 (135-145) mmol/L Potassium 3.6 (3.5-5.1) mmol/L Chloride 107 (98-107) mmol/L Carbon Dioxide 20 L (22-30) mmol/L Anion Gap 16.9 H (5-15) MEQ/L BUN 43 H (9-20) mg/dL Creatinine 1.99 H (0.66-1.25) mg/dL Estimated GFR 35.2 ML/MIN Glucose 137 H (74-106) mg/dL Lactic Acid (0.4-2.0) Calcium 8.0 L (8.4-10.2) mg/dL Magnesium (1.6-2.3) mg/dL Total Bilirubin 0.50 (0.2-1.3) mg/dL AST 77 H (17-59) U/L ALT 79 H (0-50) U/L Alkaline Phosphatase 137 H (38-126) U/L Troponin I (0.000-0.033) ng/mL NT-Pro-B Natriuret Pep (<300) pg/mL Serum Total Protein 6.2 L (6.3-8.2) g/dL Albumin 3.3 L (3.5-5.0) g/dL Urine Color (Yellow) Urine Appearance (Clear) Urine pH (4.6-8.0) Ur Specific Hustler (1.005-1.030) Urine Protein (Negative) Urine Glucose (UA) (Negative) mg/dL Urine Ketones (Negative) Urine Blood (Negative) Urine Nitrite (Negative) Urine Bilirubin (Negative) Urine Urobilinogen (0.2) mg/dL Ur Leukocyte Esterase (Negative) U Hyaline Cast (Auto) (0-2) /LPF Urine Microscopic RBC (0-5) /HPF Urine Microscopic WBC (0-5) /HPF Ur Epithelial Cells (None Seen) /HPF Urine Bacteria (None Seen) /HPF Granular Casts (None Seen) /LPF Urine Culture Reflexed (NO) Monoscreen (NEGATIVE) Slides for Path Review Radiology Exams: Radiology Procedures Category Date Time Status CHEST 1 VIEW (PORTABLE) Stat Exams 01/30/25 17:05 Completed Assessment/Plan (1) Acute UTI (urinary tract infection) Current Visit: No Status: Acute Assessment & Plan: - UA reviewed - CBC, CMP reviewed - UC pending - Ceftriaxone - IVF - WBC 10.8- improved since admission - BC x2 gram + cocci- added vancomycin Code(s): N39.0 - URINARY TRACT INFECTION, SITE NOT SPECIFIED (2) Leukocytosis Current Visit: Yes Status: Acute Assessment & Plan: - WBC 10.8- improved from admission - CXR: Portable chest demonstrates new mild left base discoid atelectasis/scarring. Remaining lungs clear again with incidental right base calcified granuloma. Heart not enlarged again with tortuous descending aorta. Bony thorax intact again with osteopenia and degenerative changes. Impression: Continued nonacute chest with chronic features. Code(s): D72.829 - ELEVATED WHITE BLOOD CELL COUNT, UNSPECIFIED (3) Fever Current Visit: Yes Status: Acute Assessment & Plan: - Tylenol, IBP PRN - Monitor - Refused flu/COVID/RSV testing - Place in isolation for flu like sxs Code(s): R50.9 - FEVER, UNSPECIFIED (4) Dehydration Current Visit: Yes Status: Acute Assessment & Plan: - Anion GAp 16.9 - + EMERSON - IVF Code(s): E86.0 - DEHYDRATION (5) Acute renal failure Current Visit: No Status: Acute Assessment & Plan: - Creat 1.99- BL 0.95 - IVF (6) Weakness Current Visit: Yes Status: Acute Assessment & Plan: - PT eval Code(s): R53.1 - WEAKNESS (7) Essential (primary) hypertension Current Visit: No Status: Chronic Assessment & Plan: - Continue home meds - BP stable Code(s): I10 - ESSENTIAL (PRIMARY) HYPERTENSION (8) Hypocalcemia Current Visit: Yes Status: Acute Assessment & Plan: - Corrected Ca+ 8.2 - Tums BID - Tele Code(s): E83.51 - HYPOCALCEMIA (9) BPH (benign prostatic hyperplasia) Current Visit: Yes Status: Chronic Assessment & Plan: - Continue flomax Code(s): N40.0 - BENIGN PROSTATIC HYPERPLASIA WITHOUT LOWER URINRY TRACT SYMP (10) Elevated brain natriuretic peptide (BNP) level Current Visit: Yes Status: Acute Assessment & Plan: - BNP 2019 - lungs clear - CXR does not shows CHF - No recent Echo to review - Will need to f/u OP with cardiology - denies CP, SOB, no edema Code(s): R79.89 - OTHER SPECIFIED ABNORMAL FINDINGS OF BLOOD CHEMISTRY (11) Hypotension Current Visit: No Status: Resolved Assessment & Plan: - resolved VTE: Lovenox PPI: Protonix Next of KIN: D/C plan: 1-2 days Code status: Full Code(s): I95.9 - HYPOTENSION, UNSPECIFIED
[2025-01-31] MEDS: ENOXAPARIN SODIUM SQ SCH (10:21)
[2025-01-31] MEDS: Protonix 40MG Tablet PO SCH (10:22)
[2025-01-31] MEDS: Flomax 0.4 MG PO SCH (10:22)
[2025-01-31] MEDS: Coreg 3.125 MG PO SCH (10:22)
[2025-01-31] MEDS: Tums EX 750 MG PO SCH (10:22)
[2025-01-31] MEDS: VANCOMYCIN 1.5 GRAM/300 ML BAG 1.5 GM/300 ML PIGGYBACK IV SCH (11:39)
[2025-01-31] MEDS: PHARMACY DOSING REQUIRED: VANCOMYCIN IV STA (13:32)
[2025-01-31] MEDS: MOTRIN 600 MG PO PRN (16:05)
[2025-01-31] MEDS: ROCEPHIN 1 GM / 100 ML NaCl 1 GM/100 ML IVPB IV SCH (22:07)
[2025-02-01 05:47] LABS: Hematocrit 34.9 % (40.1-51.0); Hemoglobin 11.8 g/dL (13.7-17.5); Mean Cell Volume 93.1 fL (79.0-92.2); Mean Corpuscular Hemoglobin 31.5 pg (25.7-32.2); Mean Corpuscular Hgb Concent. 33.8 g/dL (32.3-36.5); Platelet Count 135 x10^3/uL (163-337); Red Blood Count 3.75 x10^6/uL (4.63-6.08); Red Cell Distribution Width 14.9 % (11.6-14.4); White Blood Count 7.1 x10^3/uL (4.23-9.07)
[2025-02-01 05:57] LABS: ALBUMIN 3.2 g/dL (3.5-5.0); ANION GAP 18.1 MEQ/L (5-15); BILIRUBIN,TOTAL 0.8 mg/dL (0.2-1.3); Calcium 8.1 mg/dL (8.4-10.2); Creatinine 1 1.32 mg/dL (0.66-1.25); EST GLOMERULAR FILTRATION RATE 57.7 ML/MIN; Potassium 3.6 mmol/L (3.5-5.1); Total Protein 6.2 g/dL (6.3-8.2)
--- NOTE | 2025-02-01 10:31 | PCM.NOTE ---
Date and Time: 02/01/25 1012 Subjective Assessment: 01/31/25 Mr. MORTON is a 69 year old male with a past medical history significant for BPH, hypertension, hyperlipidemia, and CHF. He presented to the hospital on 01/30/25 with complaints of weakness, fever and cough. He was initially hypotensive with blood pressures in the 90s, though this improved after IVF bolus in ER. Labs were notable for a BUN of 44 and creatinine of 2.2. He had been on diuretics and ALESSANDRA inhibitor, and believes he has been battling a urinary tract infection. . No recent sick contacts. No nausea, vomiting or diarrhea. No current dysuria, hematuria or urgency. UA + for UTI and started on IV antibiotic. He developed a fever twice last night of 101 and provided IBP put of her purse. Nurse educated to not do this for proper monitoring and decrease the chance of organ damage as we are giving meds as well for fever. I reiterated this information today. He is refusing flu/ COVID/RSV testing and states they do not believe in the testing or illnesses. Since pt has flu like sxs will place in isolation. Pt states he had fever and chillls last night with hot flashes. WBC improved toay 10.8. he continues to be dehyrated and IVF increased to 75 ml/hr. explains he drinks lots of coffee and pop and not much water, thus likely also causing part of his dehydration. Encouraged pt to increase water intake. BC x2 and UC pending. Pt to eval as he states he is weak. Corrected Ca+ 8.2 and Tums BID started. He denies CP, abd. pain, N/V/D. 02/01/25 Pt resting in bed. Pt did not have a fever overnight. Per and nursing staff pt had an episode of shaking, chills, and sweating last night. Urine Culture + for E-coli. Discussed in detail cause of UTI and labs with and pt. asked what foods caused UTI, and explained its not cause by a food. explained he takes metamucil BID at home and has explosive episodes of BM"S and this may be the cause she thinks after further discussion. Advised to try daily dosing and this may help with sxs. Pt remains on 2lNC 97% and last night was on 3lNC for a period of time. D-Dimer + today at 9.07. Unable to do CT with PE protocol because of EMERSON. Will order venous duplex of BLLE for Monday. Will need VQ scan or CT with PE protocol Monday if EMERSON resolved. Continue IVF for EMERSON. Discussed in detail the need for Heparin today as pt and refused blood thinner yesterday. explains she thought blood thinners were blood pressure meds. Education provided in detail. Again explained this could be COVID but they do not believe in COVID or vaccines. asked we do not give vaccines. Explained we are not giving vaccines here. Explained that BP med could be held today as BP on the lower side and that would be fine. Continue IV antibiotics for UTI. Pt moved to ICU for Heparin gtt. Repeat BCx 2 pending. He denies CP, abd. pain, N/V/D. - Review of Systems Constitutional: Chills, Malaise, Night Sweats, No Fever Eyes: No Symptoms Ears, Nose, & Throat: No Symptoms Respiratory: Short Of Breath, No Cough Cardiac: No Chest Pain, No Edema, No Syncope Abdominal/Gastrointestinal: Diarrhea, No Abdominal Pain, No Nausea, No Vomiting Genitourinary Symptoms: No Dysuria Musculoskeletal: No Back Pain, No Neck Pain Skin: No Rash Neurological: No Dizziness, No Focal Weakness, No Sensory Changes Psychological: No Symptoms Endocrine: No Symptoms Hematologic/Lymphatic: No Symptoms Immunological/Allergic: No Symptoms Objective Exam General Appearance: no apparent distress, alert, obese Neurologic Exam: alert, oriented x 3, cooperative, normal mood/affect, nml cerebellar function, sensation nml, No motor deficits Skin Exam: normal color, warm, dry, diaphoresis Eye Exam: PERRL, EOMI, eyes nml inspection Ears, Nose, Throat Exam: normal ENT inspection, pharynx normal, moist mucous membranes Neck Exam: normal inspection, non-tender, supple, full range of motion Respiratory Exam: normal breath sounds, lungs clear, No respiratory distress Cardiovascular Exam: regular rate/rhythm, normal heart sounds Gastrointestinal/Abdomen Exam: soft, No tenderness, No mass Extremity Exam: normal inspection, normal range of motion Back Exam: normal inspection, normal range of motion, No CVA tenderness, No vertebral tenderness Male Genitalia Exam: deferred Rectal Exam: deferred Objective Data Vital Signs: Vital Signs - 24 hr Temp Pulse Resp BP Pulse Ox 02/01/25 07:51 97 02/01/25 07:00 98.4 F 85 20 105/65 97 02/01/25 03:00 98.4 F 64 18 146/71 96 01/31/25 23:00 97.9 F 73 18 120/67 98 01/31/25 19:00 98.4 F 86 18 100/64 96 01/31/25 18:45 96 01/31/25 16:40 95 01/31/25 15:00 102.2 F 79 18 121/68 95 01/31/25 11:51 98.7 F 74 16 137/68 97 Pain Assessment - Last Documented Pain Intensity 0 Pain Scale Used [facility] Intake and Output: Intake & Output 01/29/25 01/30/25 01/31/25 02/01/25 11:59 11:59 11:59 11:59 Intake Total 120 2058 Output Total 400 Balance -280 2058 Weight 111.3 kg Lab Results: Lab Results-Last 24 Hours 01/31/25 02/01/25 02/01/25 Range/Units 17:30 05:30 05:30 WBC 7.1 (4.23-9.07) x10^3/uL RBC 3.75 L (4.63-6.08) x10^6/uL Hgb 11.8 L (13.7-17.5) g/dL Hct 34.9 L (40.1-51.0) % MCV 93.1 H (79.0-92.2) fL MCH 31.5 (25.7-32.2) pg MCHC 33.8 (32.3-36.5) g/dL RDW 14.9 H (11.6-14.4) % Plt Count 135 L (163-337) x10^3/uL MPV 11.0 (9.4-12.4) fL D-Dimer (0.0-0.50) mg/L Sodium 142 (135-145) mmol/L Potassium 3.6 (3.5-5.1) mmol/L Chloride 111 H (98-107) mmol/L Carbon Dioxide 17 L (22-30) mmol/L Anion Gap 18.1 H (5-15) MEQ/L BUN 36 H (9-20) mg/dL Creatinine 1.32 H (0.66-1.25) mg/dL Estimated GFR 57.7 ML/MIN Glucose 107 H (74-106) mg/dL Lactic Acid 1.1 (0.4-2.0) Calcium 8.1 L (8.4-10.2) mg/dL Magnesium (1.6-2.3) mg/dL Total Bilirubin 0.80 (0.2-1.3) mg/dL AST 55 (17-59) U/L ALT 73 H (0-50) U/L Alkaline Phosphatase 159 H (38-126) U/L Serum Total Protein 6.2 L (6.3-8.2) g/dL Albumin 3.2 L (3.5-5.0) g/dL 02/01/25 02/01/25 Range/Units 05:30 05:30 WBC (4.23-9.07) x10^3/uL RBC (4.63-6.08) x10^6/uL Hgb (13.7-17.5) g/dL Hct (40.1-51.0) % MCV (79.0-92.2) fL MCH (25.7-32.2) pg MCHC (32.3-36.5) g/dL RDW (11.6-14.4) % Plt Count (163-337) x10^3/uL MPV (9.4-12.4) fL D-Dimer 9.07 H* (0.0-0.50) mg/L Sodium (135-145) mmol/L Potassium (3.5-5.1) mmol/L Chloride (98-107) mmol/L Carbon Dioxide (22-30) mmol/L Anion Gap (5-15) MEQ/L BUN (9-20) mg/dL Creatinine (0.66-1.25) mg/dL Estimated GFR ML/MIN Glucose (74-106) mg/dL Lactic Acid (0.4-2.0) Calcium (8.4-10.2) mg/dL Magnesium 2.5 H (1.6-2.3) mg/dL Total Bilirubin (0.2-1.3) mg/dL AST (17-59) U/L ALT (0-50) U/L Alkaline Phosphatase (38-126) U/L Serum Total Protein (6.3-8.2) g/dL Albumin (3.5-5.0) g/dL Radiology Exams: Radiology Procedures Category Date Time Status CHEST 1 VIEW (PORTABLE) Stat Exams 01/30/25 17:05 Completed Multi-Disciplinary Progress Notes: Multi-Disciplinary Progress Notes 01/31/25 11:14 Pharmacy Note by Presley Mckay Pharmacokinetic dosing service Date: 01/31/2025 Time: 1100 Objective: Patient: MELISA MORTON Floor: 109 Age: 69 yo Serum creatinine: 1.99 mg/dL Height: 73 Inches Weight (kg): 111 Diagnosis: UTI Relevant medical/social history: Cultures and sensitivities: PENDING Other labs: Assessment: IBW (kg): 79.90 Dosing wt(kg): 111 Estimated Creatinine clearance (ml/min): 38.5 CRCL method: Cockcroft and Gault using ibw(default). Drug selected: Vancomycin Loading dose (mg): 0 Vd (liters): 83.2 (factor used: 0.75 L/kg) Theron (hr-1): 0.036 Half life (hrs): 19.25 Recommended dose: 1500 mg Interval: 24 hrs Infusion time (hrs): 2.0 Predicted peak (mcg/mL): 30 Predicted trough (mcg/mL): 13.63 Total body weight is being used for vancomycin dosing. Renal function is stable [ ] /unstable [XXX ] Recommendations: Give Vancomycin 1500 mg q 25 hrs with an expected Cpeak of 30.3 mcg/ml and an expected Ctrough of 13.63 mcg/ml Renal dosing of other antibiotics (review renal dosing of other medications and list guidelines here): Thank you for the consult, will continue to follow. Signature: LANCE Initialized on 01/31/25 11:14 - END OF NOTE Assessment/Plan (1) Acute UTI (urinary tract infection) Current Visit: No Status: Acute Code(s): N39.0 - URINARY TRACT INFECTION, SITE NOT SPECIFIED (2) Leukocytosis Current Visit: Yes Status: Acute Code(s): D72.829 - ELEVATED WHITE BLOOD CELL COUNT, UNSPECIFIED (3) Fever Current Visit: Yes Status: Acute Code(s): R50.9 - FEVER, UNSPECIFIED (4) Dehydration Current Visit: Yes Status: Acute Code(s): E86.0 - DEHYDRATION (5) Acute renal failure Current Visit: No Status: Acute (6) Weakness Current Visit: Yes Status: Acute Code(s): R53.1 - WEAKNESS (7) Essential (primary) hypertension Current Visit: No Status: Chronic Code(s): I10 - ESSENTIAL (PRIMARY) HYPERTENSION (8) Hypocalcemia Current Visit: Yes Status: Acute Code(s): E83.51 - HYPOCALCEMIA (9) BPH (benign prostatic hyperplasia) Current Visit: Yes Status: Chronic Code(s): N40.0 - BENIGN PROSTATIC HYPERPLASIA WITHOUT LOWER URINRY TRACT SYMP (10) Elevated brain natriuretic peptide (BNP) level Current Visit: Yes Status: Acute Code(s): R79.89 - OTHER SPECIFIED ABNORMAL FINDINGS OF BLOOD CHEMISTRY (11) Hypotension Current Visit: No Status: Resolved Code(s): I95.9 - HYPOTENSION, UNSPECIFIED (12) Elevated d-dimer Current Visit: Yes Status: Acute Assessment & Plan: (1) Acute UTI (urinary tract infection) Current Visit: No Status: Acute Assessment & Plan: - UA reviewed - CBC, CMP reviewed - UC pending - Ceftriaxone - IVF - WBC 10.8- improved since admission - BC x2 gram + cocci- added vancomycin 02/01 - BC x2 from yesterday changed to gram variable rods from gram negative - repeat BCx2 obtained yesterday - Continue Ceftriaxone and vancomycin - UC + E-coli - no fever overnight - CBC, CMP reviewed - IVF Code(s): N39.0 - URINARY TRACT INFECTION, SITE NOT SPECIFIED (2) Leukocytosis Current Visit: Yes Status: Acute Assessment & Plan: - WBC 10.8- improved from admission - CXR: Portable chest demonstrates new mild left base discoid atelectasis/scarring. Remaining lungs clear again with incidental right base calcified granuloma. Heart not enlarged again with tortuous descending aorta. Bony thorax intact again with osteopenia and degenerative changes. Impression: Continued nonacute chest with chronic features. 02/01 - WBC 7.1- resolved Code(s): D72.829 - ELEVATED WHITE BLOOD CELL COUNT, UNSPECIFIED (3) Fever Current Visit: Yes Status: Acute Assessment & Plan: - Tylenol, IBP PRN - Monitor - Refused flu/COVID/RSV testing- states he does not believe in these things or vaccines - Place in isolation for flu/COVID like sxs 02/01 - reoslved Code(s): R50.9 - FEVER, UNSPECIFIED (4) Dehydration Current Visit: Yes Status: Acute Assessment & Plan: - Anion GAp 16.9 - + EMERSON - IVF 02/01 - Anion gap 18.1- worsening - Creat 1.32- improving - IVF Code(s): E86.0 - DEHYDRATION (5) Acute renal failure Current Visit: No Status: Acute Assessment & Plan: - Creat 1.99- BL 0.95 - IVF 02/01 - Creat 1.32- improving - IVF - CMP reviewed (6) Weakness Current Visit: Yes Status: Acute Assessment & Plan: - PT eval Code(s): R53.1 - WEAKNESS (7) Essential (primary) hypertension Current Visit: No Status: Chronic Assessment & Plan: - Continue home meds - BP stable 02/01 - OK to hold BP med today- nurse advised Code(s): I10 - ESSENTIAL (PRIMARY) HYPERTENSION (8) Hypocalcemia Current Visit: Yes Status: Acute Assessment & Plan: - Corrected Ca+ 8.2 - Tums BID - Tele 02/01 - Ca+ 8.3- improved Code(s): E83.51 - HYPOCALCEMIA (9) BPH (benign prostatic hyperplasia) Current Visit: Yes Status: Chronic Assessment & Plan: - Continue flomax Code(s): N40.0 - BENIGN PROSTATIC HYPERPLASIA WITHOUT LOWER URINRY TRACT SYMP (10) Elevated brain natriuretic peptide (BNP) level Current Visit: Yes Status: Acute Assessment & Plan: - BNP 2020 - lungs clear - CXR does not shows CHF - No recent Echo to review - Will need to f/u OP with cardiology - denies CP, SOB, no edema Code(s): R79.89 - OTHER SPECIFIED ABNORMAL FINDINGS OF BLOOD CHEMISTRY (11) Hypotension Current Visit: No Status: Resolved Assessment & Plan: - resolved 12. Elevated D-Dimer - D-Dimer 9.06 - Venous duplex BLLE Monday - Heparin gtt protocol started- pt moved to ICU per protocol - Unable to do CT with PE protocol d/t EMERSON - Consider if EMERSON resolves - Education provided and pt and agreeable to heparin - Continues to refuse Flu/COVID RSV testing - Consider VQ scan Monday VTE: Heparin PPI: Protonix Next of KIN: D/C plan: 1-2 days Code status: Full Code(s): R79.89 - OTHER SPECIFIED ABNORMAL FINDINGS OF BLOOD CHEMISTRY
[2025-02-01 10:49] LABS: Hematocrit 35.3 % (40.1-51.0); Hemoglobin 11.9 g/dL (13.7-17.5); Mean Cell Volume 93.4 fL (79.0-92.2); Mean Corpuscular Hemoglobin 31.5 pg (25.7-32.2); Mean Corpuscular Hgb Concent. 33.7 g/dL (32.3-36.5); Platelet Count 128 x10^3/uL (163-337); Red Blood Count 3.78 x10^6/uL (4.63-6.08); Red Cell Distribution Width 14.9 % (11.6-14.4); White Blood Count 14.3 x10^3/uL (4.23-9.07)
[2025-02-01] MEDS: HEPARIN 5000 UNITS/0.5 ML (HIGH RISK MED) IV STA (11:13)
[2025-02-01] MEDS: SODIUM BICARBONATE PO SCH (11:13)
[2025-02-01] MEDS: Heparin 25,000 units/D5W: USE ORDER SET PROTO 25,000 UNITS/250 ML BAG IV SCH (11:16)
[2025-02-01 11:35] LABS: INR 1.12 (0.8-3.0); PROTIME 12.1 SECONDS (9.4-12.5)
[2025-02-01] MEDS: HEPARIN 5000 UNITS/0.5 ML (HIGH RISK MED) IV PRN (15:21)
[2025-02-02 02:39] LABS: Hematocrit 34.4 % (40.1-51.0); Hemoglobin 11.4 g/dL (13.7-17.5); Mean Cell Volume 94.2 fL (79.0-92.2); Mean Corpuscular Hemoglobin 31.2 pg (25.7-32.2); Mean Corpuscular Hgb Concent. 33.1 g/dL (32.3-36.5); Mean Platelet Volume 11.1 fL (9.4-12.4); Platelet Count 141 x10^3/uL (163-337); Red Blood Count 3.65 x10^6/uL (4.63-6.08); White Blood Count 12.6 x10^3/uL (4.23-9.07)
[2025-02-02 02:52] LABS: ALBUMIN 3.1 g/dL (3.5-5.0); ANION GAP 14.2 MEQ/L (5-15); BILIRUBIN,TOTAL 0.7 mg/dL (0.2-1.3); Calcium 7.9 mg/dL (8.4-10.2); Creatinine 1 0.94 mg/dL (0.66-1.25); EST GLOMERULAR FILTRATION RATE 86.7 ML/MIN; MAGNESIUM 2.2 mg/dL (1.6-2.3); Potassium 3.4 mmol/L (3.5-5.1); Total Protein 6.1 g/dL (6.3-8.2)
[2025-02-02] MEDS: Klor Con PO ONE (03:07)
[2025-02-02] MEDS: VANCOMYCIN 1.5 GRAM/300 ML BAG 1.5 GM/300 ML PIGGYBACK IV SCH (09:27)
--- NOTE | 2025-02-02 09:38 | XRAY ---
CLINICAL HISTORY: elevated d-dimer COMPARISON: None. TECHNIQUE: Contiguous 3.[address] images of the chest were acquired with 80ml isovue-370mg/ml administration of intravenous contrast. Coronal and sagittal reconstructions were obtained with axial PE series. One of the following dose reduction techniques was utilized for this exam: Automated exposure control, adjustment of the mA and/or kV according to patient size, and use of iterative reconstruction. DLP 1638 mGy.cm FINDINGS: Lungs: Calcified nodule measuring 8 mm noted at the anterior right lower lung lobe, Likely secondary to old granuloma, Right fissural nodules and non calcified pleural plaque, Right upper lobe atelectatic band Mild bilateral pleural effusion, Mild left pleural reaction. No evidence of consolidation, collapse, or focal lesions. No ground-glass opacities or interstitial changes. No right pleural effusion Mediastinum: No mediastinal mass Small calcified right hilar lymph node measuring 14 mm in short axis Normal appearance of the thymus. Hilar Structures: Normal size and configuration, no enlargement. Heart and Great Vessels: Normal heart size and configuration. No pericardial effusion. Normal caliber and course of the thoracic aorta and other great vessels. Mild atherosclerotic changes of the aorta Circumferential atheromatous plaque seen at the left common carotid artery at its origin with narrowing of 50% of its lumen No aneurysm. Normal enhancement of the great vessels post-contrast. Pulmonary Arteries: No evidence of pulmonary embolism. Normal size and course of the pulmonary arteries. Esophagus: Normal course and caliber. No masses or dilatation. Bones: Thoracic spondylosis, No fractures or lytic/sclerotic lesions. Normal bone density and alignment. No evidence of rib fractures. Chest Wall: No masses or soft tissue abnormalities. Spine degenerative changes with osteophytes Upper Abdomen: Visualized portions of the liver, spleen, pancreas, adrenal glands, and kidneys are normal. No abnormalities noted in the visualized upper abdominal organs. Thyroid: Normal size and morphology. No nodules or masses. IMPRESSION: 1. The study is negative for pulmonary embolism. 2. Circumferential atheromatous plaque seen at the left common carotid artery at its origin with narrowing of 50% of its lumen. Dedicated study is advised if clinically indicated 3. Mild bilateral pleural effusion, 4. Calcified nodule 8 mm at the anterior right lower lung lobe, likely secondary to old granuloma, 5. Right subfissural nodules and focal thickening. Electronically Signed by: Hannah Álvarez MD. (02/02/2025 09:34:56 EDT)
--- NOTE | 2025-02-02 10:08 | PCM.DS ---
Discharge Summary Date of Admission: 01/30/25 22:04 Date of Discharge: 02/02/25 Admitting Physician: MICHELLE CEVALLOS MD Primary Care Provider: NEETA WALKER Allergies Allergies No Known Drug Allergies Allergy (Verified 01/30/25 16:22) Hospital Summary - Hospital Course Hospital Course: 01/31/25 Mr. MORTON is a 69 year old male with a past medical history significant for BPH, hypertension, hyperlipidemia, and CHF. He presented to the hospital on 01/30/25 with complaints of weakness, fever and cough. He was initially hypotensive with blood pressures in the 90s, though this improved after IVF bolus in ER. Labs were notable for a BUN of 44 and creatinine of 2.2. He had been on diuretics and ALESSANDRA inhibitor, and believes he has been battling a urinary tract infection. . No recent sick contacts. No nausea, vomiting or diarrhea. No current dysuria, he maturia or urgency. UA + for UTI and started on IV antibiotic. He developed a fever twice last night of 101 and provided IBP put of her purse. Nurse educated to not do this for proper monitoring and decrease the chance of organ damage as we are giving meds as well for fever. I reiterated this information today. He is refusing flu/ COVID/RSV testing and states they do not believe in the testing or illnesses. Since pt has flu like sxs will place in isolation. Pt states he had fever and chillls last night with hot flashes. WBC improved toay 10.8. he continues to be dehyrated and IVF increased to 75 ml/hr. explains he drinks lots of coffee and pop and not much water, thus likely also causing part of his dehydration. Encouraged pt to increase water intake. BC x2 and UC pending. Pt to eval as he states he is weak. Corrected Ca+ 8.2 and Tums BID started. He denies CP, abd. pain, N/V/D. 02/01/25 Pt resting in bed. Pt did not have a fever overnight. Per and nursing staff pt had an episode of shaking, chills, and sweating last night. Urine Culture + for E-coli. Discussed in detail cause of UTI and labs with and pt. asked what foods caused UTI, and explained its not cause by a food. explained he takes metamucil BID at home and has explosive episodes of BM"S and this may be the cause she thinks after further discussion. Advised to try daily dosing and this may help with sxs. Pt remains on 2lNC 97% and last night was on 3lNC for a period of time. D-Dimer + today at 9.07. Unable to do CT with PE protocol because of EMERSON. Will order venous duplex of BLLE for Monday. Will need VQ scan or CT with PE protocol Monday if EMERSON resolved. Continue IVF for EMERSON. Discussed in detail the need for Heparin today as pt and refused blood thinner yesterday. explains she thought blood thinners were blood pressure meds. Education provided in detail. Again explained this could be COVID but they do not believe in COVID or vaccines. asked we do not give vaccines. Explained we are not giving vaccines here. Explained that BP med could be held today as BP on the lower side and that would be fine. Continue IV antibiotics for UTI. Pt moved to ICU for Heparin gtt. Repeat BCx 2 pending. He denies CP, abd. pain, N/V/D. 02/02/25 Pt resting in the chair. He is wanting to d/c home today. He has been weaned off O2. EMERSON resolved. CT chest negative for PE and heparin stopped. CT of chest showed: Circumferential atheromatous plaque seen at the left common carotid artery at its origin with narrowing of 50% of its lumen. Dedicated study is advised if clinically indicated Mild bilateral pleural effusion, Calcified nodule 8 mm at the anterior right lower lung lobe, likely secondary to old granuloma. Right subfissural nodules and focal thickening. Pt can continue taking lasix. He will need to f/u with PCP early this week for repeat labs and referral to cardiology. He reports seeing Dr. Wu in the past for a heart cath but never followed up as he was reportedly told he did not need to do so. 1st set of BC x2 + for e-coli, 2nd set of BC pending. Will follow OP. K+ 3.4 and replaced. WBC improved 12.6. Will continue PO antibiotocs OP for UTI. He denies CP, SOB, abd. pain, N/V/D. Explained he needs to f/u with PCP OP early this week for repeat labs and referral to cardilogy as we are unable to scheduled this today. - Vitals & Intake/Output Vital Signs: Vital Signs Temperature 100 F 02/02/25 07:00 Pulse Rate 80 02/02/25 09:00 Respiratory Rate 17 02/02/25 09:00 Blood Pressure 151/81 02/02/25 09:00 O2 Sat by Pulse Oximetry 98 02/02/25 09:00 Intake & Output: Intake & Output 01/30/25 01/31/25 02/01/25 02/02/25 11:59 11:59 11:59 11:59 Intake Total 120 8 3218 Output Total 400 575 Balance -280 2057 2643 Weight 111.3 kg 112 kg - Lab Result Diagrams: 02/02/25 02:35 02/02/25 02:35 Lab Results-Last 24 Hrs: Lab Results-Last 24 Hours 02/01/25 02/01/25 02/01/25 Range/Units 10:40 10:40 14:45 WBC 14.3 H (4.23-9.07) x10^3/uL RBC 3.78 L (4.63-6.08) x10^6/uL Hgb 11.9 L (13.7-17.5) g/dL Hct 35.3 L (40.1-51.0) % MCV 93.4 H (79.0-92.2) fL MCH 31.5 (25.7-32.2) pg MCHC 33.7 (32.3-36.5) g/dL RDW 14.9 H (11.6-14.4) % Plt Count 128 L (163-337) x10^3/uL MPV 11.0 (9.4-12.4) fL PT 12.1 (9.4-12.5) SECONDS INR 1.12 (0.8-3.0) APTT 25.0 L 21.8 L (25.1-36.5) SECONDS Sodium (135-145) mmol/L Potassium (3.5-5.1) mmol/L Chloride (98-107) mmol/L Carbon Dioxide (22-30) mmol/L Anion Gap (5-15) MEQ/L BUN (9-20) mg/dL Creatinine (0.66-1.25) mg/dL Estimated GFR ML/MIN Glucose (74-106) mg/dL Calcium (8.4-10.2) mg/dL Magnesium (1.6-2.3) mg/dL Total Bilirubin (0.2-1.3) mg/dL AST (17-59) U/L ALT (0-50) U/L Alkaline Phosphatase (38-126) U/L Serum Total Protein (6.3-8.2) g/dL Albumin (3.5-5.0) g/dL Vancomycin Trough (10-20) ug/mL 02/01/25 02/01/25 02/02/25 Range/Units 18:30 22:30 02:35 WBC (4.23-9.07) x10^3/uL RBC (4.63-6.08) x10^6/uL Hgb (13.7-17.5) g/dL Hct (40.1-51.0) % MCV (79.0-92.2) fL MCH (25.7-32.2) pg MCHC (32.3-36.5) g/dL RDW (11.6-14.4) % Plt Count (163-337) x10^3/uL MPV (9.4-12.4) fL PT (9.4-12.5) SECONDS INR (0.8-3.0) APTT 28.5 24.3 L 33.0 (25.1-36.5) SECONDS Sodium (135-145) mmol/L Potassium (3.5-5.1) mmol/L Chloride (98-107) mmol/L Carbon Dioxide (22-30) mmol/L Anion Gap (5-15) MEQ/L BUN (9-20) mg/dL Creatinine (0.66-1.25) mg/dL Estimated GFR ML/MIN Glucose (74-106) mg/dL Calcium (8.4-10.2) mg/dL Magnesium (1.6-2.3) mg/dL Total Bilirubin (0.2-1.3) mg/dL AST (17-59) U/L ALT (0-50) U/L Alkaline Phosphatase (38-126) U/L Serum Total Protein (6.3-8.2) g/dL Albumin (3.5-5.0) g/dL Vancomycin Trough (10-20) ug/mL 02/02/25 02/02/25 02/02/25 Range/Units 02:35 02:35 07:22 WBC 12.6 H (4.23-9.07) x10^3/uL RBC 3.65 L (4.63-6.08) x10^6/uL Hgb 11.4 L (13.7-17.5) g/dL Hct 34.4 L (40.1-51.0) % MCV 94.2 H (79.0-92.2) fL MCH 31.2 (25.7-32.2) pg MCHC 33.1 (32.3-36.5) g/dL RDW 15.0 H (11.6-14.4) % Plt Count 141 L (163-337) x10^3/uL MPV 11.1 (9.4-12.4) fL PT (9.4-12.5) SECONDS INR (0.8-3.0) APTT 38.2 H (25.1-36.5) SECONDS Sodium 139 (135-145) mmol/L Potassium 3.4 L (3.5-5.1) mmol/L Chloride 108 H (98-107) mmol/L Carbon Dioxide 20 L (22-30) mmol/L Anion Gap 14.2 (5-15) MEQ/L BUN 22 H (9-20) mg/dL Creatinine 0.94 (0.66-1.25) mg/dL Estimated GFR 86.7 ML/MIN Glucose 130 H (74-106) mg/dL Calcium 7.9 L (8.4-10.2) mg/dL Magnesium 2.2 (1.6-2.3) mg/dL Total Bilirubin 0.70 (0.2-1.3) mg/dL AST 57 (17-59) U/L ALT 71 H (0-50) U/L Alkaline Phosphatase 140 H (38-126) U/L Serum Total Protein 6.1 L (6.3-8.2) g/dL Albumin 3.1 L (3.5-5.0) g/dL Vancomycin Trough (10-20) ug/mL 02/02/25 Range/Units 07:22 WBC (4.23-9.07) x10^3/uL RBC (4.63-6.08) x10^6/uL Hgb (13.7-17.5) g/dL Hct (40.1-51.0) % MCV (79.0-92.2) fL MCH (25.7-32.2) pg MCHC (32.3-36.5) g/dL RDW (11.6-14.4) % Plt Count (163-337) x10^3/uL MPV (9.4-12.4) fL PT (9.4-12.5) SECONDS INR (0.8-3.0) APTT (25.1-36.5) SECONDS Sodium (135-145) mmol/L Potassium (3.5-5.1) mmol/L Chloride (98-107) mmol/L Carbon Dioxide (22-30) mmol/L Anion Gap (5-15) MEQ/L BUN (9-20) mg/dL Creatinine (0.66-1.25) mg/dL Estimated GFR ML/MIN Glucose (74-106) mg/dL Calcium (8.4-10.2) mg/dL Magnesium (1.6-2.3) mg/dL Total Bilirubin (0.2-1.3) mg/dL AST (17-59) U/L ALT (0-50) U/L Alkaline Phosphatase (38-126) U/L Serum Total Protein (6.3-8.2) g/dL Albumin (3.5-5.0) g/dL Vancomycin Trough 6.60 L (10-20) ug/mL Micro Results-Entire Visit: Microbiology 01/31/25 12:30 Blood Culture - Preliminary Blood 01/31/25 12:30 Blood Culture - Preliminary Blood 01/30/25 17:26 Blood Culture Gram Stain - Final Blood Blood Culture - Final Escherichia Coli 01/30/25 17:00 Blood Culture Gram Stain - Final Blood Blood Culture - Final Escherichia Coli 01/30/25 20:34 Urine Culture - Final Urine, Void Escherichia Coli - Radiology Exams Ordered Rad Exams-Entire Visit: Radiology Procedures Category Date Time Status CHEST WITH CONTRAST [CT] Stat Exams 02/02/25 07:33 Completed VENOUS BILATERAL EXTREMITY [US] Routine Exams 02/03/25 08:00 Ordered - Procedures and Test Procedures and Tests throughout Hospitalization: Therapy Orders & Screens 01/30/25 22:06 Respiratory Therapy Consult ONCE Comment: Reason For Exam: 01/31/25 07:57 PT Eval & Treat (MD Order) ONCE Reason for Eval:: weakness, possible rehab need vs. HHC Diagnosis: fever, weakness 01/31/25 16:38 Oxygen NASAL CANNULA 3 lpm Comment: Diagnosis: fever, weakness Discharge Exam General Appearance: no apparent distress, alert Neurologic Exam: alert, oriented x 3, cooperative, normal mood/affect, nml cerebellar function, sensation nml, No motor deficits Eye Exam: PERRL, EOMI, eyes nml inspection Ears, Nose, Throat Exam: normal ENT inspection, pharynx normal, moist mucous membranes Neck Exam: normal inspection, non-tender, supple, full range of motion Respiratory Exam: normal breath sounds, lungs clear, No respiratory distress Cardiovascular Exam: regular rate/rhythm, normal heart sounds, edema (+1 BLLE) Gastrointestinal/Abdomen Exam: soft, No tenderness, No mass Male Genitalia Exam: deferred Rectal Exam: deferred Back Exam: normal inspection, normal range of motion, No CVA tenderness, No vertebral tenderness Extremity Exam: normal inspection, normal range of motion Skin Exam: normal color, warm, dry Final Diagnosis/Problem List - Final Discharge Diagnosis/Problem (1) Acute UTI (urinary tract infection) Current Visit: No Status: Acute Code(s): N39.0 - URINARY TRACT INFECTION, SITE NOT SPECIFIED (2) Leukocytosis Current Visit: Yes Status: Acute Code(s): D72.829 - ELEVATED WHITE BLOOD CELL COUNT, UNSPECIFIED (3) Fever Current Visit: Yes Status: Acute Code(s): R50.9 - FEVER, UNSPECIFIED (4) Dehydration Current Visit: Yes Status: Acute Code(s): E86.0 - DEHYDRATION (5) Acute renal failure Current Visit: No Status: Acute (6) Weakness Current Visit: Yes Status: Acute Code(s): R53.1 - WEAKNESS (7) Essential (primary) hypertension Current Visit: No Status: Chronic Code(s): I10 - ESSENTIAL (PRIMARY) HYPERTENSION (8) Hypocalcemia Current Visit: Yes Status: Acute Code(s): E83.51 - HYPOCALCEMIA (9) BPH (benign prostatic hyperplasia) Current Visit: Yes Status: Chronic Code(s): N40.0 - BENIGN PROSTATIC HYPERPLASIA WITHOUT LOWER URINRY TRACT SYMP (10) Elevated brain natriuretic peptide (BNP) level Current Visit: Yes Status: Acute Code(s): R79.89 - OTHER SPECIFIED ABNORMAL FINDINGS OF BLOOD CHEMISTRY (11) Hypotension Current Visit: No Status: Resolved Code(s): I95.9 - HYPOTENSION, UNSPECIFIED (12) Elevated d-dimer Current Visit: Yes Status: Acute Assessment & Plan: (1) Acute UTI (urinary tract infection) Current Visit: No Status: Acute Assessment & Plan: - UA reviewed - CBC, CMP reviewed - UC pending - Ceftriaxone - IVF - WBC 10.8- improved since admission - BC x2 gram + cocci- added vancomycin 02/01 - BC x2 from yesterday changed to gram variable rods from gram negative - repeat BCx2 obtained yesterday - Continue Ceftriaxone and vancomycin - UC + E-coli - no fever overnight - CBC, CMP reviewed - IVF 02/02 - BX 2 + E-coli- + bactremia - 2nd set of BC x2 pending and will continue to follow OP - Will need to f/u with PCP OP early this week for repeat labs. - Continued fever overnight of 100 and 99 this AM Code(s): N39.0 - URINARY TRACT INFECTION, SITE NOT SPECIFIED (2) Leukocytosis Current Visit: Yes Status: Acute Assessment & Plan: - WBC 10.8- improved from admission - CXR: Portable chest demonstrates new mild left base discoid atelectasis/scarring. Remaining lungs clear again with incidental right base calcified granuloma. Heart not enlarged again with tortuous descending aorta. Bony thorax intact again with osteopenia and degenerative changes. Impression: Continued nonacute chest with chronic features. 02/01 - WBC 7.1 02/02 - WBC 12.6 Code(s): D72.829 - ELEVATED WHITE BLOOD CELL COUNT, UNSPECIFIED (3) Fever Current Visit: Yes Status: Acute Assessment & Plan: - Tylenol, IBP PRN - Monitor - Refused Flu/COVID/RSV testing- states he does not believe in these things or vaccines - Place in isolation for flu/COVID like sxs 02/01 - no overnight temps 02/02 - + Fever of 100 last night and 99 this AM - Explained explained he could also have Flu/COVID/RSV- but also may be 2:2 UTI Code(s): R50.9 - FEVER, UNSPECIFIED (4) Dehydration Current Visit: Yes Status: Acute Assessment & Plan: - Anion Gap 16.9 - + EMERSON - IVF 02/01 - Anion gap 18.1- worsening - Creat 1.32- improving - IVF 02/02 - resolved Code(s): E86.0 - DEHYDRATION (5) Acute renal failure Current Visit: No Status: Acute Assessment & Plan: - Creat 1.99- BL 0.95 - IVF 02/01 - Creat 1.32- improving - IVF - CMP reviewed 02/02 - resolved (6) Weakness Current Visit: Yes Status: Acute Assessment & Plan: - PT eval Code(s): R53.1 - WEAKNESS (7) Essential (primary) hypertension Current Visit: No Status: Chronic Assessment & Plan: - Continue home meds - BP stable 02/01 - OK to hold BP med today- nurse advised Code(s): I10 - ESSENTIAL (PRIMARY) HYPERTENSION (8) Hypocalcemia Current Visit: Yes Status: Acute Assessment & Plan: - Corrected Ca+ 8.2 - Tums BID - Tele 02/01 - Ca+ 8.3- improved 02/02 - Corrected Ca+ 8.2 - F/u OP with PCP Code(s): E83.51 - HYPOCALCEMIA (9) BPH (benign prostatic hyperplasia) Current Visit: Yes Status: Chronic Assessment & Plan: - Continue flomax Code(s): N40.0 - BENIGN PROSTATIC HYPERPLASIA WITHOUT LOWER URINRY TRACT SYMP (10) Elevated brain natriuretic peptide (BNP) level Current Visit: Yes Status: Acute Assessment & Plan: - BNP 2020 - lungs clear - CXR does not shows CHF - No recent Echo to review - Will need to f/u OP with cardiology - denies CP, SOB, no edema Code(s): R79.89 - OTHER SPECIFIED ABNORMAL FINDINGS OF BLOOD CHEMISTRY (11) Hypotension Current Visit: No Status: Resolved Assessment & Plan: - resolved 12. Elevated D-Dimer - D-Dimer 9.06 - Venous duplex BLLE Monday - Heparin gtt protocol started- pt moved to ICU per protocol - Unable to do CT with PE protocol d/t EMERSON - Consider if EMERSON resolves - Education provided and pt and agreeable to heparin - Continues to refuse Flu/COVID/ RSV testing - Consider VQ scan Friday 02/02 - EMERSON resolved- CT with PE protocol negative for PE - Chest CT: IMPRESSION: 1. The study is negative for pulmonary embolism. 2. Circumferential atheromatous plaque seen at the left common carotid artery at its origin with narrowing of 50% of its lumen. Dedicated study is advised if clinically indicated 3. Mild bilateral pleural effusion, 4. Calcified nodule 8 mm at the anterior right lower lung lobe, likely secondary to old granuloma, 5. Right subfissural nodules and focal thickening. - Stop heparin gtt - BLLE negative for pain or redness - cancel VD BLLE tomorrow Code(s): R79.89 - OTHER SPECIFIED ABNORMAL FINDINGS OF BLOOD CHEMISTRY (13) Pleural effusion Current Visit: Yes Status: Acute Assessment & Plan: - BL, MIld, as seen on CT - Continue lasix - F/U with PCP for repeat CXR OP - Wean off o2 today - Will need Echo OP Code(s): J90 - PLEURAL EFFUSION, NOT ELSEWHERE CLASSIFIED (14) Carotid artery plaque Current Visit: Yes Status: Acute Assessment & Plan: -As seen on CT Circumferential atheromatous plaque seen at the left common carotid artery at its origin with narrowing of 50% of its lumen. Dedicated study is advised if clinically indicated - Will need OP eval - PCP to refer to cardiology Code(s): I65.29 - OCCLUSION AND STENOSIS OF UNSPECIFIED CAROTID ARTERY (15) Bacteremia Current Visit: Yes Status: Acute Assessment & Plan: - BC x2 + e-coli - Continue cefuroxime 500 BID x10 days OP - 2nd set of BC x2 pending - will follow OP Code(s): R78.81 - BACTEREMIA - Discharge Discharge Date: 02/02/25 Disposition: Home, Self-Care Condition: Fair Prescriptions: Continue Furosemide [Lasix] 20 mg PO DAILY Carvedilol 3.125 mg [Coreg 3.125 MG] 3.125 mg PO BID lisinopriL [Zestril] 2.5 mg PO DAILY Tamsulosin HCl 0.4 mg [Flomax 0.4 MG] 0.4 mg PO DAILY Additional Instructions: Advised to avoid small children, elderly, and people with low immune systems while ill and has temp. Wear a mask in public. Follow up with: NEETA WALKER MD [Primary Care Provider] -
[2025-02-02 11:09] VITALS: BP 139/75; PULSE 79; RESP 23; TEMP 99.2; O2SAT 98
== END 2025-02-02 11:15 | disposition home or self-care (01) ==
LOC: ED 16:16 → MED SURG 22:04 → ICU 02-01 10:25
PROVIDERS: ADMIT Internal Medicine Nephrology; ATTEND Internal Medicine Nephrology
DX: N39.0 Urinary tract infection, site not specified (principal); B96.20 Unspecified Escherichia coli [E. coli] as the cause of diseases classified elsewhere; D72.829 Elevated white blood cell count, unspecified; R50.9 Fever, unspecified; E86.0 Dehydration; N17.9 Acute kidney failure, unspecified; R53.1 Weakness; E83.51 Hypocalcemia; N40.0 Benign prostatic hyperplasia without lower urinary tract symptoms; R79.89 Other specified abnormal findings of blood chemistry; I95.9 Hypotension, unspecified; J90 Pleural effusion, not elsewhere classified; I65.29 Occlusion and stenosis of unspecified carotid artery; R78.81 Bacteremia; E78.5 Hyperlipidemia, unspecified; I11.0 Hypertensive heart disease with heart failure; I50.9 Heart failure, unspecified; Z79.899 Other long term (current) drug therapy
CPT/HCPCS: 36415; 71045; 71260; 80053; 80202; 81001; 83605; 83735; 83880; 84484; 85025; 85027; 85379; 85610; 85730; 86308; 87040; 87077; 87086; 87186; 93005; 93268; 94760; 97161; 99285; G0378; Q3014; J0696; J1644; J1650; A9270-GY; J3370